=== PATIENT | male | born 1930 | race Caucasian/White ===

== ENCOUNTER 2016-04-03 11:34 | Inpatient (IN) | payer MEDICARE ==
[2016-04-03] VITALS (11 sets, daily range): BP systolic 110–128; BP diastolic 48–69
[~2016-04-03] VITALS: Ht 176.5 cm; Wt 64.0 kg
--- NOTE | 2016-04-03 12:16 | PHYS DOC ---
Past Medical History Past Medical History: A-Fib, GERD, High Cholesterol, Hypertension Past Surgical History: Knee Replacement, Other Alcohol Use: Occasionally Drug Use: None Adult General Chief Complaint Chief Complaint: ALTERED MENTAL STATUS HPI HPI Patient is a 86 year old male who presents with fever 100.4. He also has been complaining about back pain and weakness. He presents to ER in [facility] with RVR. He denies any cough, dysuria, or confusion at this time. Review of Systems Review of Systems Constitutional: Denies fever or chills [] Eyes: Denies change in visual acuity, redness, or eye pain [] HENT: Denies nasal congestion or sore throat [] Respiratory: Denies cough or shortness of breath [] Cardiovascular: No additional information not addressed in HPI [] GI: Denies abdominal pain, nausea, vomiting, bloody stools or diarrhea [] : Denies dysuria or hematuria [] Musculoskeletal: Denies back pain or joint pain [] Integument: Denies rash or skin lesions [] Neurologic: Denies headache, focal weakness or sensory changes [] Endocrine: Denies polyuria or polydipsia [] Current Medications Current Medications Current Medications Medications (Trade) Dose Ordered Sig/Harlan Start Time Stop Time Status Last Admin Dose Admin Acetaminophen (Tylenol) 1,000 mg 1X ONCE 04/03/16 14:45 04/03/16 14:46 DC Diltiazem HCl 10 mg 10 mg 1X ONCE 04/03/16 12:45 04/03/16 12:46 DC 04/03/16 12:45 10 MG Diltiazem HCl/ Dextrose (Cardizem) 125 ml @ 0 mls/hr 1X ONCE 04/03/16 12:45 04/03/16 12:46 DC 04/03/16 12:57 5 MLS/HR Allergies Allergies Allergies Coded Allergies Type Severity Reaction Last Updated Verified ezetimibe Allergy Severe Hives 04/03/16 Yes Physical Exam Physical Exam Constitutional: Well developed, well nourished, no acute distress, non-toxic appearance. [] HENT: Normocephalic, atraumatic, bilateral external ears normal, oropharynx moist, no oral exudates, nose normal. [] Eyes: PERRLA, EOMI, conjunctiva normal, no discharge. [] Neck: Normal range of motion, no tenderness, supple, no stridor. [] Cardiovascular:Heart rate regular rhythm, no murmur [] Lungs & Thorax: Bilateral breath sounds clear to auscultation [] Abdomen: Bowel sounds normal, soft, no tenderness, no masses, no pulsatile masses. [] Skin: Warm, dry, no erythema, no rash. [] Back: No tenderness, no CVA tenderness. [] Extremities: No tenderness, no cyanosis, no clubbing, ROM intact, no edema. [] Neurologic: Alert and oriented X 3, normal motor function, normal sensory function, no focal deficits noted. [] Psychologic: Affect normal, judgement normal, mood normal. [] Current Patient Data Vital Signs Vital Signs Date Time Temp Pulse Resp B/P Pulse Ox O2 Delivery O2 Flow Rate FiO2 04/03/16 14:00 108 24 119/75 94 Room Air 04/03/16 11:50 100.4 3 100.4 Lab Values Laboratory Tests Test 04/03/16 12:05 04/03/16 12:10 04/03/16 13:25 04/03/16 13:40 Prothrombin Time 15.2SEC (11.7-14.0) H Prothrombin Time INR 1.3 (0.8-1.1) H Sodium Level 134mmol/L (136-145) L Potassium Level 4.3mmol/L (3.5-5.1) Chloride Level 97mmol/L (98-107) L Carbon Dioxide Level 24mmol/L (21-32) Anion Gap 13 (6-14) Blood Urea Nitrogen 31mg/dL (8-26) H Creatinine 1.1mg/dL (0.7-1.3) Estimated GFR (Cockcroft-Gault) 63.6 Glucose Level 119mg/dL (70-99) H Lactic Acid Level 2.2mmol/L (0.4-2.0) H Calcium Level 8.8mg/dL (8.5-10.1) Magnesium Level 2.3mg/dL (1.8-2.4) Total Bilirubin 1.5mg/dL (0.2-1.0) H Direct Bilirubin 0.6mg/dL (0.0-0.2) H Aspartate Amino Transferase (AST) 130U/L (15-37) H Alanine Aminotransferase (ALT) 57U/L (16-63) Alkaline Phosphatase 99U/L (46-116) Creatine Kinase 50U/L (39-308) Creatine Kinase MB (Mass) 1.0ng/mL (0.0-3.6) Creatine Kinase MB Relative Index % (0-4) Troponin I Quantitative 0.174ng/mL (0.000-0.055) WX-Cgc-P-Type Natriuretic Peptide > 23247qq/mL (0-449) H Total Protein 7.6g/dL (6.4-8.2) Albumin 3.2g/dL (3.4-5.0) L Thyroid Stimulating Hormone (TSH) 0.498uIU/mL (0.358-3.74) Urine Collection Type Void Urine Color Yellow Urine Clarity Clear Urine pH 5.5 Urine Specific [place] 1.025 Urine Protein 20mg/dL (NEG-TRACE) Urine Glucose (UA) Negativemg/dL (NEG) Urine Ketones (Stick) Negativemg/dL (NEG) Urine Blood Trace (NEG) Urine Nitrite Negative (NEG) Urine Bilirubin Negative (NEG) Urine Urobilinogen Dipstick 1.0mg/dL (0.2 mg/dL) Urine Leukocyte Esterase Negative (NEG) Urine RBC 1-2/HPF (0-2) Urine WBC 1-4/HPF (0-4) Urine Squamous Epithelial Cells Many/LPF Urine Bacteria Few/HPF (0-FEW) Urine Mucus Marked/LPF White Blood Count 5.3x10^3/uL (4.0-11.0) Red Blood Count 3.76x10^6/uL (4.30-5.70) L Hemoglobin 9.8g/dL (13.0-17.5) L Hematocrit 31.3% (39.0-53.0) L Mean Corpuscular Volume 83fL (79-100) Mean Corpuscular Hemoglobin 26pg (25-35) Mean Corpuscular Hemoglobin Concent 31g/dL (31-37) Red Cell Distribution Width 18.8% (11.5-14.5) H Platelet Count 108x10^3/uL (140-400) L Neutrophils (%) (Auto) 73% (31-73) Lymphocytes (%) (Auto) 10% (24-48) L Monocytes (%) (Auto) 17% (0-9) H Eosinophils (%) (Auto) 0% (0-3) Basophils (%) (Auto) 1% (0-3) Neutrophils # (Auto) 3.8x10^3uL (1.8-7.7) Lymphocytes # (Auto) 0.5x10^3/uL (1.0-4.8) L Monocytes # (Auto) 0.9x10^3/uL (0.0-1.1) Eosinophils # (Auto) 0.0x10^3/uL (0.0-0.7) Basophils # (Auto) 0.0x10^3/uL (0.0-0.2) Platelet Estimate Pending Influenza Type A Antigen Negative (NEGATIVE) Influenza Type B Antigen Negative (NEGATIVE) Laboratory Tests 04/03/16 13:25 Laboratory Tests 04/03/16 12:05 EKG EKG KG shows irregular rhythm with a rate of [address] elevations or T- wave inversions, left axis deviation, QRS 88 ms, as interpreted by me. Radiology/Procedures Radiology/Procedures [facility] [address] [place] [address] IMAGING REPORT Signed PATIENT: CODY GARVIN ACCOUNT: [id number] : 1930 LOCATION: ER AGE: 86 SEX: M EXAM STATUS: PRE ER ORD. PHYSICIAN: MAYELA HAGAN MD REASON: chest pain PROCEDURE: PORTABLE CHEST 1V Indication chest pain. A single view of the chest was obtained. Comparison is made to a study 10/02/2011. Heart size is slightly enlarged. There are changes suggesting mild pulmonary vascular congestion. There are probable tiny pleural effusions. A consolidated pneumonia is not seen. Postoperative changes are noted. Degenerative changes about the right shoulder are noted. IMPRESSION: Mild cardiomegaly. Suspect superimposed mild pulmonary vascular congestion. Small bilateral pleural effusions DICTATED and SIGNED BY: ELIANA ORDOÑEZ MD DATE: 04/03/16 1249 CC: MAYELA HAGAN MD; LIVAN LAM MD ~ Impressions: fever Afib with RVR elevated troponin Course & Med Decision Making Course & Med Decision Making Pertinent Labs and Imaging studies reviewed. (See chart for details) Patient presents with a fever and A. fib with RVR. I do not find a source of fever is his chest x-ray and urine do not have any signs of infection. 1 g of Tylenol was ordered and he was started on diltiazem 10 mg IV push and 5 per hour. He is being admitted to Dr. Lam with cardiology consultation. Dragon Disclaimer Dragon Disclaimer This electronic medical record was generated, in whole or in part, using a voice recognition dictation system. Departure Departure Referrals: LIVAN LAM MD (PCP) MAYELA HAGAN MD Apr 03, 2016 12:16
[2016-04-03 12:32] LABS: INR 1.3 (0.8-1.1); PROTHROMBIN TIME PATIENT 15.2 SEC (11.7-14.0)
[2016-04-03 12:39] LABS: BILIRUBIN,URINE NEGATIVE (NEG); GLUCOSE,URINE NEGATIVE (NEG); NITRITE,URINE NEGATIVE (NEG); PH,URINE 5.5
[2016-04-03 12:41] LABS: CALCIUM 8.8 mg/dL (8.5-10.1); CREATININE 1.1 mg/dL (0.7-1.3); GFR 63.6; POTASSIUM 4.3 mmol/L (3.5-5.1)
[2016-04-03] MEDS ORDERED: DILTIAZEM IV PUSH 25 MG/5 ML VIAL. IVP ONE (12:45)
[2016-04-03] MEDS ORDERED: DILTIAZEM 125 MG in IV DEXTROSE 5% 100 ML IV ONE (12:45)
[2016-04-03 12:46] LABS: ALBUMIN 3.2 g/dL (3.4-5.0); DIRECT BILIRUBIN 0.6 mg/dL (0.0-0.2); MAGNESIUM 2.3 mg/dL (1.8-2.4); TOTAL BILIRUBIN 1.5 mg/dL (0.2-1.0); TOTAL PROTEIN 7.6 g/dL (6.4-8.2)
[2016-04-03 12:47] LABS: PROTEIN,URINE 20 mg/dL (NEG-TRACE)
[2016-04-03 12:48] LABS: BACTERIA,URINE FEW /HPF (0-FEW); SQUAMOUS EPITHELIAL CELL,UR MANY /LPF
[2016-04-03 12:54] LABS: CREATINE KINASE 50 U/L (39-308)
--- NOTE | 2016-04-03 12:55 | RAD ---
Indication chest pain. A single view of the chest was obtained. Comparison is made to a study 10/02/2011. Heart size is slightly enlarged. There are changes suggesting mild pulmonary vascular congestion. There are probable tiny pleural effusions. A consolidated pneumonia is not seen. Postoperative changes are noted. Degenerative changes about the right shoulder are noted. IMPRESSION: Mild cardiomegaly. Suspect superimposed mild pulmonary vascular congestion. Small bilateral pleural effusions
[2016-04-03 13:58] LABS: BASO % 1 % (0-3); EOS % 0 % (0-3); HEMATOCRIT 31.3 % (39.0-53.0); HEMOGLOBIN 9.8 g/dL (13.0-17.5); LYMPH # 0.5 x10^3/uL (1.0-4.8); LYMPH % 10 % (24-48); MEAN CORPUSCULAR HEMOGLOBIN 26 pg (25-35); MEAN CORPUSCULAR HGB CONC 31 g/dL (31-37); MEAN CORPUSCULAR VOLUME 83 fL (79-100); MONO % 17 % (0-9); NEUT % 73 % (31-73); PLATELET COUNT 108 x10^3/uL (140-400); RED BLOOD COUNT 3.76 x10^6/uL (4.30-5.70); RED CELL DISTRIBUTION WIDTH 18.8 % (11.5-14.5); WHITE BLOOD COUNT 5.3 x10^3/uL (4.0-11.0)
[2016-04-03 14:24] LABS: OBC FLU VALID
[2016-04-03] MEDS ORDERED: ACETAMINOPHEN 500 MG TABLET PO ONE (14:45)
--- NOTE | 2016-04-03 15:34 | EKG ---
[facility] [address] [place] [address] Test Date: 2016-04-03 Test Time: 11:59:01 Pat Name: CODY GARVIN Department: Room: Gender: M [employer]: : 1930 Requested By: MAYELA HAGAN Order Number: [id number] Reading MD: Ann Haines Measurements Intervals [place] Rate: 128 P: [place]: QRS: -11 QRSD: 88 T: 66 QT: 306 QTc: 450 Interpretive Statements ATRIAL FIBRILLATION VENTRICULAR PREMATURE COMPLEX(ES) LEFTWARD AXIS QRS(T) CONTOUR ABNORMALITY CONSISTENT WITH INFERIOR INFARCT PROBABLY OLD ABNORMAL ECG RI6.01 Compared to ECG 06/05/2015 15:17:35 Sinus rhythm no longer present Myocardial infarct finding still present Electronically Signed On 04-05-2016 20:14:26 [employer] by Ann Haines
[2016-04-03 15:40] LABS: NUCLEATED RBC 1; PLT ESTIMATE DECREASED (ADEQUATE)
[2016-04-03 15:41] LABS: ANISOCYTOSIS SLIGHT; OVALOCYTES MANY; POIKILOCYTOSIS MARKED; POLYCHROMASIA PRESENT
[2016-04-03] MEDS ORDERED: FUROSEMIDE 20 MG/2 ML VIAL IVP ONE (15:45)
--- NOTE | 2016-04-03 15:57 | PDOC2 ---
CARDIAC CONSULT DATE OF CONSULT Date of Consult DATE: 04/03/16 TIME: 15:12 REASON FOR CONSULT Reason for Consult: AFIB RVR REFERRING PHYSICIAN Referring Physician: Chris SOURCE Source: Caregiver (daughter), Chart review, Patient HISTORY OF PRESENT ILLNESS HISTORY OF PRESENT ILLNESS This is a pleasant 86 yo male admitted for multiple complains. Reports that in the last week he has been feeling weak, complains of anorexia and fatigue. Also has been coughing lately especially when he swallows and noted at home and at the ED room upon swallowing thin liquids. Denies any CP but positive for SOA , PND. No significant peripheral edema. Denies any palpitations or chest pain. Since his appetite has been decreased, his daughter has been pushing fluids and in the last 24 hours he has drank about 1500 ml of fluids. He also has been having episodes of cold sweats and possible chills but no recorded fever. Also complains of right groin pain but this is intermittent but this is not duplicated with palpation and ROM although he mentions this hurting when he walks. He did have x1 diarrhea last night. He has been complaint with his medications. PAST MEDICAL HISTORY Cardiovascular: CAD, CHF (ICM), HTN, Hyperlipidemia, Aortic stenosis (moderate) , Other (AAA) Pulmonary: No pertinent hx CENTRAL NERVOUS SYSTEM: Other (SAH from fall) GI: GERD Heme/Onc: Anemia NOS Hepatobiliary: No pertinent hx Psych: Anxiety Musculoskeletal: Osteoarthritis, Other (cervical stenosis) Rheumatologic: No pertinent hx Infectious disease: No pertinent hx ENT: No pertinent hx Renal/: UTI, Benign prostatic enlarg. Endocrine: Hypothyroidism Dermatology: No pertinent hx PAST SURGICAL HISTORY Past Surgical History: CABG, Total knee replacement (right), Tonsillectomy, Other (AAA repair 08/2011; prostatectomy) FAMILY HISTORY Family History: Coronary Artery Disease SOCIAL HISTORY Smoke: No (remotely quit) ALCOHOL: occassional Drugs: None Lives: with Family CURRENT MEDICATIONS CURRENT MEDICATIONS Current Medications Medications (Trade) Dose Ordered Sig/Harlan Route PRN Reason Start Time Stop Time Status Last Admin Dose Admin Diltiazem HCl 10 mg 10 mg 1X ONCE IVP 04/03/16 12:45 04/03/16 12:46 DC 04/03/16 12:45 Diltiazem HCl/ Dextrose (Cardizem) 125 ml @ 0 mls/hr 1X ONCE IV 04/03/16 12:45 04/03/16 12:46 DC 04/03/16 12:57 ALLERGIES ALLERGIES: Coded Allergies: ezetimibe (Verified Allergy, Severe, Hives, 04/03/16) ROS Review of System 14 point ROS evaluated with pertinent positives noted per HPI PHYSICAL EXAM General: Alert, Oriented X3, Cooperative, No acute distress HEENT: Atraumatic, Mucous membr. moist/pink Lungs: Other (bibasilar crackles) Heart: Normal S1, Normal S2, Other (AFIB; 5/6 systolic murmur to RACHELL border; 3/ 6 to LLS border) Abdomen: Soft, No tenderness Extremities: No cyanosis, Other (trace LE edema) Skin: No breakdown, No significant lesion Neuro: Normal speech, Sensation intact Psych/Mental Status: Mental status NL, Mood NL MUSCULOSKELETAL: Osteoarthritic changes both hands, Other (no right groin tenderness; neurovascular status to bilateral LE intact) VITALS VITALS Vital Signs Date Time Temp Pulse Resp B/P Pulse Ox O2 Delivery O2 Flow Rate FiO2 04/03/16 14:00 108 24 119/75 94 Room Air 04/03/16 11:50 100.4 3 100.4 LABS Lab: Laboratory Tests Test 04/03/16 12:05 04/03/16 12:10 04/03/16 13:25 04/03/16 13:40 Prothrombin Time 15.2SEC (11.7-14.0) Prothromb Time International Ratio 1.3 (0.8-1.1) Sodium Level 134mmol/L (136-145) Potassium Level 4.3mmol/L (3.5-5.1) Chloride Level 97mmol/L (98-107) Carbon Dioxide Level 24mmol/L (21-32) Anion Gap 13 (6-14) Blood Urea Nitrogen 31mg/dL (8-26) Creatinine 1.1mg/dL (0.7-1.3) Estimated GFR (Cockcroft-Gault) 63.6 Glucose Level 119mg/dL (70-99) Lactic Acid Level 2.2mmol/L (0.4-2.0) Calcium Level 8.8mg/dL (8.5-10.1) Magnesium Level 2.3mg/dL (1.8-2.4) Total Bilirubin 1.5mg/dL (0.2-1.0) Direct Bilirubin 0.6mg/dL (0.0-0.2) Aspartate Amino Transf (AST/SGOT) 130U/L (15-37) Alanine Aminotransferase (ALT/SGPT) 57U/L (16-63) Alkaline Phosphatase 99U/L (46-116) Creatine Kinase 50U/L (39-308) Creatine Kinase MB (Mass) 1.0ng/mL (0.0-3.6) Creatine Kinase MB Relative Index % (0-4) Troponin I Quantitative 0.174ng/mL (0.000-0.055) ZH-Uwi-Y-Type Natriuretic Peptide > 25555qy/mL (0-449) Total Protein 7.6g/dL (6.4-8.2) Albumin 3.2g/dL (3.4-5.0) Thyroid Stimulating Hormone (TSH) 0.498uIU/mL (0.358-3.74) Urine Collection Type Void Urine Color Yellow Urine Clarity Clear Urine pH 5.5 Urine Specific [place] 1.025 Urine Protein 20mg/dL (NEG-TRACE) Urine Glucose (UA) Negativemg/dL (NEG) Urine Ketones (Stick) Negativemg/dL (NEG) Urine Blood Trace (NEG) Urine Nitrite Negative (NEG) Urine Bilirubin Negative (NEG) Urine Urobilinogen Dipstick 1.0mg/dL (0.2 mg/dL) Urine Leukocyte Esterase Negative (NEG) Urine RBC 1-2/HPF (0-2) Urine WBC 1-4/HPF (0-4) Urine Squamous Epithelial Cells Many/LPF Urine Bacteria Few/HPF (0-FEW) Urine Mucus Marked/LPF White Blood Count 5.3x10^3/uL (4.0-11.0) Red Blood Count 3.76x10^6/uL (4.30-5.70) Hemoglobin 9.8g/dL (13.0-17.5) Hematocrit 31.3% (39.0-53.0) Mean Corpuscular Volume 83fL (79-100) Mean Corpuscular Hemoglobin 26pg (25-35) Mean Corpuscular Hemoglobin Concent 31g/dL (31-37) Red Cell Distribution Width 18.8% (11.5-14.5) Platelet Count 108x10^3/uL (140-400) Neutrophils (%) (Auto) 73% (31-73) Lymphocytes (%) (Auto) 10% (24-48) Monocytes (%) (Auto) 17% (0-9) Eosinophils (%) (Auto) 0% (0-3) Basophils (%) (Auto) 1% (0-3) Neutrophils # (Auto) 3.8x10^3uL (1.8-7.7) Lymphocytes # (Auto) 0.5x10^3/uL (1.0-4.8) Monocytes # (Auto) 0.9x10^3/uL (0.0-1.1) Eosinophils # (Auto) 0.0x10^3/uL (0.0-0.7) Basophils # (Auto) 0.0x10^3/uL (0.0-0.2) Influenza Type A Antigen Negative (NEGATIVE) Influenza Type B Antigen Negative (NEGATIVE) ECHOCARDIOGRAM ECHOCARDIOGRAM <Conclusion> Inferior basal wall hypokinesis. The Ejection Fraction is 45-50%. The left atrium is mildly dilated. Moderate aortic stenosis with mean pressure gradient of 23 mmHg. Moderate mitral regurgitation. Moderate tricuspid regurgitation. The PA pressure was estimated at 56 mmHg. There is no evidence of significant pericardial effusion. DATE: 03/04/16 1617 STRESS TEST STRESS TEST Conclusion 1. Regadenoson cardioisotope stress test showed moderate infarct involving the base to mid inferior wall without any ischemia. 2. Also seen was a small infarct involving the apical wall without any ischemia. 3. Inferior wall hypokinesis with ejection fraction calculated at 49%. 4. Low to intermediate risk for cardiac events. DATE: 12/10/14 1423 ASSESSMENT/PLAN ASSESSMENT/PLAN 1. Dysphagia with likely aspiration: Verbalized some swallowing difficulty and noted with witnessed and consistent cough after drinking thin liquids. Recommend NPO until evaluated by Speech. Recommend GI consult. Defer to PCP. 2. Fever: T 100.4, viral syndrome? aspiration related? Neg flu serology 3. AFIB RVR: per chart review, this is new onset. Likely multifactorial in etiology likely stemming from above condition but clearly susceptible given his age and valvular disease. Received cardizem bolus and drip has been initiated. 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 If no spontaneous conversion then will need to consult neurology and see if short term anticoagulation is possible for any possible cardioversion. Will utilize ASA for now clear for po meds. MCOT when discharge and note afib burden. 4. Acute on chronic systolic CHF: Likely induced by above. Known ICM with last EF of 45-50% 02/2016. x1 low dose IV 20 mg lasix. 5. CAD: CABG in the past. CP free. Last MPI 11/2014 with no ischemia. EKG AFIB RVR. Troponin initial at 0.174, demand mediated related to above concurrent acute conditions. Continue with secondary prevention as tolerated. 6. 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 Stable. 7. Prerenal azotemia: dehydration complicated by CHF. Noted with possible aspiration with thin liquids. Speech eval. NPO for now. Start on low rate NS. 8. Right groin pain with known PAD: mainly with ambulation. arthritis? claudication? Defer to PCP 9. AAA/PAD: s/p aortobifemoral bypass and complex surgical AAA repair. 10. Intermittent abdominal pain with mild transaminitis: CT of abd/pelvis also in relation to AAA/PAD was ordered as outpt but does not appear that it has been done yet. Will defer to PCP. 11. HTN: controlled, will hold ACEi for now till adequately hydrated and per BP response to cardizem. 12. HLP: statin, lipid panel 13. Hypothyroidism: on replacement. TSH level. 14. Hx of chronic right SDH: noted on CT 05/2015. Failed to f/u with neurology. Defer to PCP 15. Likely Dementia: notable for cerebral atrophy Problems: MARIJA LIMA APRN Apr 03, 2016 15:57
[2016-04-03] MEDS ORDERED: IV NORMAL SALINE 1000ML BAG 1,000 ML IV SCH (16:15)
[2016-04-03 16:28] LABS: CHOLESTEROL/HDL RATIO 2.4
[2016-04-03] MEDS ORDERED: ACETAMINOPHEN 650 MG SUPP.RECT. PR ONE (16:30)
[2016-04-03] MEDS ORDERED: ASPIRIN 300 MG SUPP.RECT PR ONE (17:15)
[2016-04-03] MEDS ORDERED: DIGOXIN 500 MCG/2 ML AMPUL. IV ONE (17:15)
[2016-04-03] MEDS ORDERED: ASPI-482 PO (18:26)
[2016-04-03] MEDS ORDERED: PARO20TA55 PO (18:26)
[2016-04-03] MEDS ORDERED: OMEP20TA63 PO (18:26)
[2016-04-03] MEDS ORDERED: LEVO50TA5 PO (18:29)
[2016-04-03] MEDS ORDERED: LISI-338 PO (18:29)
[2016-04-03] MEDS ORDERED: ACET325T21 PO (18:29)
[2016-04-03] MEDS ORDERED: MULT-208 PO (18:29)
[2016-04-03] MEDS ORDERED: ACET500T68 PO (18:30)
[2016-04-03] MEDS ORDERED: ATORVASTATIN CA80 MG PO (18:30)
[2016-04-03] MEDS ORDERED: HYDR-2762 PO (18:32)
[2016-04-04] VITALS (10 sets, daily range): BP systolic 101–127; BP diastolic 49–64
[2016-04-04 02:14] LABS: BASO # 0.1 x10^3/uL (0.0-0.2); BASO % 1 % (0-3); EOS % 0 % (0-3); HEMATOCRIT 27.4 % (39.0-53.0); HEMOGLOBIN 8.9 g/dL (13.0-17.5); LYMPH % 12 % (24-48); MEAN CORPUSCULAR HEMOGLOBIN 26 pg (25-35); MEAN CORPUSCULAR HGB CONC 32 g/dL (31-37); MEAN CORPUSCULAR VOLUME 82 fL (79-100); MONO % 13 % (0-9); NEUT % 75 % (31-73); PLATELET COUNT 86 x10^3/uL (140-400); RED BLOOD COUNT 3.36 x10^6/uL (4.30-5.70); RED CELL DISTRIBUTION WIDTH 18.5 % (11.5-14.5)
[2016-04-04 02:22] LABS: CALCIUM 7.8 mg/dL (8.5-10.1); POTASSIUM 3.2 mmol/L (3.5-5.1)
[2016-04-04] MEDS ORDERED: FLU VACC QUAD 2016-17 (36MOS+)/PF 0.5 ML SYRINGE. VAX IM ONE (09:00)
[2016-04-04] MEDS ORDERED: INFLUENZA VAX SCREEN BY RX. MC ONE (09:00)
--- NOTE | 2016-04-04 11:18 | PDOC ---
Provider Note Provider Note See admission H&P dictation #[id number] Impression: 1. A. fib with RVR: 2. Abdominal pain: 3. Congestive heart failure likely secondary to the atrial fibrillation/RVR and the combination of systolic and diastolic dysfunction: 4. Anemia: 5. Prerenal azotemia secondary to volume depletion and poor by mouth intake: 6. Elevated troponins secondary to demand ischemia from A. fib: 7. Dysphagia symptoms with difficulty swallowing and cough: 8. Abnormal glucose: 9. Hypertension: 10. Valvular disease including moderate , mod MR, mod TR: 11. History of depression: 12. Hypokalemia: LIVAN LAM MD Apr 04, 2016 11:18
[2016-04-04] MEDS ORDERED: FENTANYL PF 100 MCG/2 ML VIAL. IV PRN (11:45)
[2016-04-04] MEDS ORDERED: IOHEXOL 300 MG/ML 75 ML VIAL IV ONE (11:45)
[2016-04-04] MEDS ORDERED: CONTRAST GIVEN MC PRN (12:00)
[2016-04-04] MEDS: POTASSIUM CHLORIDE 10MEQ 100 ML IV SCH ×4 (12:22→15:27)
--- NOTE | 2016-04-04 12:24 | HP ---
ADMIT DATE: 04/04/2016 ATTENDING PHYSICIAN: Livan Lam MD CHIEF COMPLAINT: Altered mental status. HISTORY OF PRESENT ILLNESS: The patient was having some mild confusion on the day of his admission. He also had a temperature to 100.4. He has been sick over the last couple of weeks. He has not been eating and drinking much. He has been feeling generally weak and fatigued. Due to the combination of symptoms, he presented to the Emergency Room for further evaluation where it was noted that he was in atrial fibrillation with rapid ventricular response. PAST MEDICAL HISTORY: Significant for coronary artery disease, ischemic cardiomyopathy, peripheral vascular disease, abdominal aortic aneurysm status post repair, hypertension, hyperlipidemia, depression, aortic stenosis and other valvular disease, hypothyroidism, beginnings of dementia, anemia, abnormal glucose, moderate mitral regurg, moderate tricuspid regurg, pulmonary hypertension, and subarachnoid hemorrhage secondary to fall last year. PAST SURGICAL HISTORY: Prostatectomy, right knee replacement, coronary artery bypass grafting, abdominal aortic aneurysm repair in 2011, tonsillectomy. SOCIAL HISTORY: The patient lives at home with his . He has a granddaughter who takes care of him regularly. He does not smoke, he quit in the remote past. He occasionally drinks alcohol, no illicit drug use. FAMILY HISTORY: Noncontributory. ALLERGIES TO MEDICATIONS: ZETIA. MEDICATIONS: At time of admission include Tylenol 650 mg p.o. q. 6 hours p.r.n., aspirin 81 mg p.o. daily, Lipitor 80 mg p.o. daily, [place] 7.5/325 1 p.o. 4 hours p.r.n., levothyroxine 50 mcg p.o. daily, lisinopril 5 mg p.o. daily, multivitamin 1 p.o. daily, omeprazole 20 mg p.o. daily, Paxil 20 mg p.o. daily. REVIEW OF SYSTEMS: The patient had a low grade temperature on the day prior to admission. He has had some difficulty swallowing over the last several days and has been coughing more when he has been eating. He did have difficulty swallowing a pill where it feels like it is caught. He has had a decreased appetite and decreased oral intake over the last week or two. He denies any significant shortness of breath. He has had a cough with eating primarily. He denies any chest pain or palpitations. He has not had any lower extremity swelling. He has had intermittent constipation and diarrhea. There has been no emesis. He is having some abdominal pain and swelling occasionally in the lower quadrants and pain intermittently in the upper abdomen. He has been voiding frequently. He denies any dysuria or hematuria. He denies any focal paresthesias or weakness, but he has been generally weak and lying in bed more lately. His depression has been relatively stable. He does have things that he looks forward to. PHYSICAL EXAMINATION: VITAL SIGNS: At time of admission, temperature 100.4 orally, pulse 125, respiratory rate 26, blood pressure 117/79, O2 sat 96% on room air. GENERAL: The patient is alert and oriented x 3, he is lying in bed in no acute distress. HEENT: The pupils are equal and round. The extraocular motions are intact. Sclerae are anicteric. The oropharynx is minimally moist. NECK: Without JVD. There is no bruit. CHEST: Has decreased air movement and has occasional crackles at the left base and decreased breath sounds at the right base. CARDIOVASCULAR: The heart has an irregular rhythm with 2/6 systolic murmur. Telemetry shows atrial fibrillation, currently with a controlled rate. ABDOMEN: Has occasional bowel sounds. It is soft and nondistended. There is some tenderness in the right upper abdomen. There is no guarding or rebound. EXTREMITIES: Trace of edema bilaterally in the lower legs. NEUROLOGIC: Motor strength is 5/5 bilaterally throughout. PSYCHIATRIC: Mood and affect appear appropriate. LABORATORY DATA: At the time of admission, sodium 134, potassium 4.3 which decreased to 3.2, chloride 97, CO2 24, BUN 31, creatinine 1.1, glucose 119, magnesium 2.3, total bili 1.5, direct bili 0.6, AST 130. Troponin 0.174. BNP greater than 35,000. Albumin 3.2, TSH 0.498, and INR 1.3. Urine shows specific gravity 1.025, 20 protein, trace blood, negative nitrite and leukocyte esterase. Influenza A and B was negative. WBC 5.3, hemoglobin 9.8, hematocrit 31.3, platelets 108 with a differential of 49, 26 bands, 9 lymphocytes, 1 atypical lymphocyte, 1 nucleated RBC, many ovalocytes. Chest x-ray shows mild cardiomegaly, suspect superimposed mild pulmonary vascular congestion with small bilateral pleural effusions. EKG shows an irregular rhythm with a rate of [address] elevations or T-wave inversions on preliminary read. IMPRESSION: 1. Atrial fibrillation with rapid ventricular response. 2. Abdominal pain. 3. Congestive heart failure likely secondary to the atrial fibrillation with rapid ventricular response and combination of diastolic and systolic dysfunction. 4. Anemia. 5. Prerenal azotemia secondary to volume depletion and poor oral intake. 6. Elevated troponins secondary to demand ischemia from atrial fibrillation. 7. Dysphagia symptoms with difficulty swallowing and cough. 8. Abnormal glucose. 9. Hypertension. 10. Valvular disease including moderate aortic stenosis, moderate mitral regurgitation, moderate tricuspid regurgitation, and pulmonary hypertension. 11. History of depression. 12. Hypokalemia. PLAN: The patient is admitted. Cardiology is consulted. No further evaluation cardiac zapata at this point other than gentle diuresis. He did have an echocardiogram done approximately 3-4 weeks ago. We will make adjustments per their recommendations as needed. We will get a CT scan of the abdomen and pelvis, which we are going to do as an outpatient due to his weight loss and abdominal discomfort as well as his anemia. He may need GI evaluation. We will have speech therapy see the patient to determine whether he can have things by mouth or has to have a modified diet. We will give him gentle IV fluids until we can make sure about his oral intake. We will check a hemoglobin A1c secondary to his abnormal glucose. We will replace his potassium either through the IV or orally. Further treatment will be based on how the patient responds to these interventions. LIVAN LAM MD DR: CHARLIE/indira JOB#: [id number] / [id number] ANTONINO
[2016-04-04] MEDS: DILTIAZEM 125 MG in IV DEXTROSE 5% 100 ML IV PRN (12:31)
--- NOTE | 2016-04-04 13:01 | RAD ---
CT of the abdomen and pelvis with contrast, 04/04/2016: History: Abdominal pain, weight loss Multidetector CT imaging was performed following an IV bolus injection of iodinated contrast material. No oral contrast material was administered for this exam as requested. Comparison is made to a study from 08/21/2011. Small bilateral pleural effusions have developed. There is mild atelectasis in both lung bases. Coronary artery calcifications are present. No hepatic mass or bile duct dilatation is seen. The gallbladder is unremarkable. The pancreas is somewhat atrophic. The spleen is of normal size. The right kidney shows no evidence of obstruction or mass. A normal kidney is not visible on the left renal fossa. 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 This pelvic kidney has decreased markedly in size and demonstrates poor enhancement. There has been interval repair of a distal abdominal aortic aneurysm. There is an aorto-bifemoral graft in place. The graft is patent. A right common iliac artery aneurysm on the previous study has increased in size. There is also a smaller left common iliac artery aneurysm. These appear to opacify in a retrograde manner related to the presence of the aortofemoral grafts. The right common iliac artery aneurysm measures 6 x 4.3 cm on the axial images compared to measurements of 4 x 3.5 cm on the previous study. Its right lateral margin cannot be clearly from the adjacent psoas muscle. It involves the origins of the right internal iliac and external iliac arteries. The left common iliac artery aneurysm measures approximately 3.3 cm in width, compared to a measurement of approximately 2.3 cm on the previous study. The prostate gland is surgically absent. No abdominal or pelvic adenopathy is seen. There are scattered colonic diverticula. No paracolonic inflammatory process is seen. There is no evidence of bowel obstruction. Minimal increased density in the paracolic gutter regions may be due to scarring versus a trace amount of free fluid. No large volume of free fluid is evident. No free air is present in the abdomen. There is a small umbilical hernia containing only fat. There are additional smaller fascial defects at the midline just superior to this level, which also contain only fat. IMPRESSION: 1. Interval repair of a distal abdominal aortic aneurysm with an aortobifemoral graft in place. 2. Large right common iliac artery aneurysm which has increased in size since 08/21/2011. 3. Small left common iliac artery aneurysm. 4. 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 5. Mild colonic diverticulosis. 6. Small umbilical and periumbilical hernias containing only fat. 7. Small bilateral pleural effusions have developed with mild bibasilar atelectasis.
[2016-04-05] MEDS: DILTIAZEM 125 MG in IV DEXTROSE 5% 100 ML IV PRN (01:25)
[2016-04-05 02:45] VITALS: BP 108/58
[2016-04-05 06:03] LABS: BASO % 1 % (0-3); EOS % 0 % (0-3); HEMATOCRIT 25.9 % (39.0-53.0); HEMOGLOBIN 8.2 g/dL (13.0-17.5); LYMPH # 1.3 x10^3/uL (1.0-4.8); LYMPH % 19 % (24-48); MEAN CORPUSCULAR HEMOGLOBIN 27 pg (25-35); MEAN CORPUSCULAR HGB CONC 32 g/dL (31-37); MEAN CORPUSCULAR VOLUME 83 fL (79-100); MONO % 19 % (0-9); NEUT % 61 % (31-73); PLATELET COUNT 85 x10^3/uL (140-400); RED BLOOD COUNT 3.11 x10^6/uL (4.30-5.70); RED CELL DISTRIBUTION WIDTH 18.3 % (11.5-14.5); WHITE BLOOD COUNT 6.5 x10^3/uL (4.0-11.0)
[2016-04-05 06:22] LABS: % SAT IRON 9 % (15-34); IRON,SERUM 21 ug/dL (65-175)
[2016-04-05 06:26] LABS: ALBUMIN 2.3 g/dL (3.4-5.0); ALBUMIN/GLOBULIN RATIO 0.6 (1.0-1.7); CALCIUM 7.8 mg/dL (8.5-10.1); CREATININE 0.8 mg/dL (0.7-1.3); GFR 91.9; POTASSIUM 3.8 mmol/L (3.5-5.1); TOTAL PROTEIN 6.2 g/dL (6.4-8.2)
[2016-04-05 07:50] VITALS: BP 116/61
[2016-04-05 08:30] LABS: PLT ESTIMATE DECREASED (ADEQUATE)
[2016-04-05 08:36] LABS: MICROCYTOSIS PRESENT; POIKILOCYTOSIS MARKED
[2016-04-05 08:37] LABS: OVALOCYTES MANY; SCHISTOCYTES MOD; SPHEROCYTES FEW
[2016-04-05] MEDS ORDERED: BARIUM SULFATE 40% 148 GM PWD PO ONE (10:15)
--- NOTE | 2016-04-05 11:12 | RAD ---
Video dysphasia study, 04/05/2016: History: Possible aspiration The swallowing mechanism was examined fluoroscopically in the lateral projection while the patient ingested a variety of food materials mixed with barium. 3.6 minutes of fluoroscopy time was utilized. One video loop was recorded by a member of the speech Department. When ingesting the thin liquid materials there was deep laryngeal penetration down to the level of vocal cords. A small amount of material eventually dribbled into the upper trachea. When the honey thickened material was utilized the laryngeal penetration abated. No further aspiration occurred. The majority of the barium bolus passed normally through the cervical esophagus. With the thicker materials and barium coated solids there was moderate vallecular residue following swallowing. IMPRESSION: 1. Deep laryngeal penetration and minimal janeen aspiration with the thin liquids which abated when the honey thickened material was utilized. 2. Moderate vallecular residue with the thicker materials and barium coated solids.
[2016-04-05] MEDS: AA 3%/ELECTROLYTE-TPN SOLN/GLY 1,000 ML IV SCH ×2 (12:09→23:28)
--- NOTE | 2016-04-05 12:16 | PDOC ---
SUBJECTIVE Subjective No new complaints. Denies any shortness of breath or chest pain. No new abdominal pain. He is weak and feels unsteady on his feet. OBJECTIVE Vital Signs Vital Signs Date Time Temp Pulse Resp B/P Pulse Ox O2 Delivery O2 Flow Rate FiO2 04/05/16 08:00 Room Air 3.0 04/05/16 07:50 97.3 74 18 116/61 97 Room Air 97.3 04/05/16 02:45 97.4 71 16 108/58 96 Room Air 97.4 04/04/16 23:18 97.7 71 16 117/60 96 Room Air 97.7 04/04/16 19:31 Room Air 04/04/16 19:20 98.0 82 16 112/57 94 Room Air 98.0 04/04/16 14:36 98.2 75 18 113/60 96 Room Air 98.2 I & O Intake and Output 04/05/16 07:00 Intake Total 1325 ml Output Total 300 ml Balance 1025 ml Intake Oral 0 ml IV Total 525 ml Other 800 ml Output Urine Total 300 ml # Voids 1 PHYSICAL EXAM Physical Exam General: No acute distress. Laying in bed without supplemental oxygen Mental status: Alert and oriented. Chest: Okay air movement. Occasional crackles at the left base. Mildly decreased air movement at the right base. CV: Irregularly irregular rhythm. Rate controlled on telemetry. 2/6 systolic murmur. Abdomen: Normal bowel sounds. Soft. Not distended. No tenderness. No guarding. No rebound. Extremities: Trace bilateral lower extremity edema ASSESSMENT/PLAN Assessment/Plan 1. A. fib with RVR: We'll transition to oral medication for rate control then discontinue the Cardizem drip. Would prefer to use a medication like Lopressor initially which we can crush since he may have difficulty with swallowing pills as noted on speech eval 2. Abdominal pain: CT scan noted. Diverticulosis. Increased size of right iliac aneurysm with retrograde filling? Status post aortobifemoral bypass. Consult GI. 3. Congestive heart failure likely secondary to the atrial fibrillation/RVR and the combination of systolic and diastolic dysfunction: Continue to monitor and per cardiology. 4. Anemia: Hemoglobin decreased slightly far today. Possibly due to dilutional effect of fluids. We'll consult GI since he has been having some abdominal pain as well. 5. Prerenal azotemia secondary to volume depletion and poor by mouth intake: Continue IV fluids and monitor for worsening evidence of failure. 6. Elevated troponins secondary to demand ischemia from A. fib: Continue per cardiology. 7. Dysphagia symptoms with difficulty swallowing and cough: Speech eval noted. Possibly due to weakness from being ill over the last couple weeks. Hopefully this will improve as his strength improves with better nutrition. 8. Abnormal glucose: Continue to monitor as needed. 9. Hypertension: Stable. Adjust medications as noted. 10. Valvular disease including moderate , mod MR, mod TR: Stable, continue per cardiology. 11. History of depression: Stable. 12. Hypokalemia: Improved post replacement 13. Right common iliac aneurysm increased to 6 x 4 cm size with possible retrograde filling: He is status post aortobifemoral bypass but we will have vascular surgery look at the films and patient to see if we need to do anything else he has noticed some fullness in his right lower pelvis in the last week or 2 intermittently. Problems: COMMENT Lab Laboratory Tests Test 04/05/16 05:28 White Blood Count 6.5x10^3/uL (4.0-11.0) Red Blood Count 3.11x10^6/uL (4.30-5.70) Hemoglobin 8.2g/dL (13.0-17.5) Hematocrit 25.9% (39.0-53.0) Mean Corpuscular Volume 83fL (79-100) Mean Corpuscular Hemoglobin 27pg (25-35) Mean Corpuscular Hemoglobin Concent 32g/dL (31-37) Red Cell Distribution Width 18.3% (11.5-14.5) Platelet Count 85x10^3/uL (140-400) Neutrophils (%) (Auto) 61% (31-73) Lymphocytes (%) (Auto) 19% (24-48) Monocytes (%) (Auto) 19% (0-9) Eosinophils (%) (Auto) 0% (0-3) Basophils (%) (Auto) 1% (0-3) Neutrophils # (Auto) 4.0x10^3uL (1.8-7.7) Lymphocytes # (Auto) 1.3x10^3/uL (1.0-4.8) Monocytes # (Auto) 1.2x10^3/uL (0.0-1.1) Eosinophils # (Auto) 0.0x10^3/uL (0.0-0.7) Basophils # (Auto) 0.0x10^3/uL (0.0-0.2) Segmented Neutrophils % 46% (35-66) Band Neutrophils % 16% (0-9) Lymphocytes % 16% (24-48) Atypical Lymphocytes % (Manual) 9% (0-0) Monocytes % 13% (0-10) Platelet Estimate Decreased (ADEQUATE) Large Platelets Present Poikilocytosis Marked Microcytosis Present Macrocytosis Present Spherocytes Few Ovalocytes Many Schistocytes Mod RBC Morphology Bizarre Forms Many Sodium Level 136mmol/L (136-145) Potassium Level 3.8mmol/L (3.5-5.1) Chloride Level 104mmol/L (98-107) Carbon Dioxide Level 19mmol/L (21-32) Anion Gap 13 (6-14) Blood Urea Nitrogen 23mg/dL (8-26) Creatinine 0.8mg/dL (0.7-1.3) Estimated GFR (Cockcroft-Gault) 91.9 BUN/Creatinine Ratio 29 (6-20) Glucose Level 87mg/dL (70-99) Calcium Level 7.8mg/dL (8.5-10.1) Iron Level 21ug/dL (65-175) Total Iron Binding Capacity 241ug/dL (250-450) Iron Saturation 9% (15-34) Total Bilirubin 1.0mg/dL (0.2-1.0) Aspartate Amino Transf (AST/SGOT) 65U/L (15-37) Alanine Aminotransferase (ALT/SGPT) 34U/L (16-63) Alkaline Phosphatase 91U/L (46-116) Total Protein 6.2g/dL (6.4-8.2) Albumin 2.3g/dL (3.4-5.0) Albumin/Globulin Ratio 0.6 (1.0-1.7) LIVAN LAM MD Apr 05, 2016 12:16
[2016-04-05] MEDS ORDERED: HYDROCODONE/APAP 7.5/325MG TABLET. PO PRN (12:30)
[2016-04-05] MEDS ORDERED: ACETAMINOPHEN 325 MG TABLET. PO PRN (12:30)
[2016-04-05] MEDS: PAROXETINE 20 MG TABLET. PO SCH (12:54)
[2016-04-05] MEDS: PANTOPRAZOLE 40 MG TABLET. PO SCH (12:54)
[2016-04-05] MEDS: DILTIAZEM HCL 30 MG TABLET PO SCH ×2 (13:58→20:56)
[2016-04-05 14:29] VITALS: BP 106/53
[2016-04-05 19:59] VITALS: BP 122/59
--- NOTE | 2016-04-05 20:01 | PDOC2 ---
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 Callahan) that was admitted with low grade fever , weakness, and atrial fibrillation. He has had a loss of appetite over the past several months, and lost around 30 pounds. He does not complain of any abdominal pain. He is able to eat, and denies any vomiting. His bowel movements have been more irregular, although he continues to have BM and was started on miralax. He has not had any recent follow-up or repeat imaging related to his aneurysm repair. Past Medical History Cardiovascular: CAD, CHF (ICM), HTN, Hyperlipidemia, Aortic stenosis (moderate) , Other (AAA) Pulmonary: No pertinent hx CENTRAL NERVOUS SYSTEM: Other (SAH from fall) GI: GERD Heme/Onc: Anemia NOS Hepatobiliary: No pertinent hx Psych: Anxiety Musculoskeletal: Osteoarthritis, Other (cervical stenosis) Rheumatologic: No pertinent hx Infectious disease: No pertinent hx ENT: No pertinent hx Renal/: UTI, Benign prostatic enlarg. Endocrine: Hypothyroidism Dermatology: No pertinent hx Past Surgical History Past Surgical History: CABG, Total knee replacement (right), Tonsillectomy, Other (AAA repair 08/2011; prostatectomy) Family History Family History: Coronary Artery Disease Social History No (remotely quit) ALCOHOL: occassional Drugs: None Lives: with Family Current Problem List Problem List Problems Medical Problems: (1) Atrial fibrillation with RVR Status: Acute Current Medications Current Medications Current Medications Diltiazem HCl 10 mg 10 mg 1X ONCE IVP Last administered on 04/03/16 12:45; Start 04/03/16 at 12:45; Stop 04/03/16 at 12:46; Status DC Diltiazem HCl/ Dextrose (Cardizem) 125 ml @ 0 mls/hr 1X ONCE IV Last administered on 04/03/16 12:57; Start 04/03/16 at 12:45; Stop 04/03/16 at 12:46 ; Status DC Acetaminophen (Tylenol) 1,000 mg 1X ONCE PO ; Start 04/03/16 at 14:45; Stop at 14:46; Status DC Furosemide 20 mg 20 mg 1X ONCE IVP Last administered on 04/03/16 16:32; Start 04/03/16 at 15:45; Stop 04/03/16 at 15:59; Status DC Sodium Chloride (Iv Sodium Chloride 0.9% 1000ml Bag) 1,000 ml @ 50 mls/hr Q20H IV Last administered on 04/03/16 17:26; Start 04/03/16 at 16:15; Stop at 11:27; Status DC Acetaminophen (Tylenol) 650 mg 1X ONCE W[place] Last administered on 04/03/16 16:38 ; Start 04/03/16 at 16:30; Stop 04/03/16 at 16:31; Status DC Aspirin (Aspirin) 150 mg 1X ONCE WV Last administered on 04/03/16 17:24; Start 04/03/16 at 17:15; Stop 04/03/16 at 17:16; Status DC Digoxin 500 mcg 500 mcg 1X ONCE IV Last administered on 04/03/16 17:25; Start 04/03/16 at 17:15; Stop 04/03/16 at 17:16; Status DC Diltiazem HCl/ Dextrose (Cardizem) 125 ml @ 0 mls/hr CONT PRN IV SEE I/O RECORD Last administered on 04/05/16 01:25; Start 04/03/16 at 22:15 Info (Do NOT chart on this placeholder) 0.5 each 1X ONCE MC ; Start 04/04/16 at 09:00; Stop 04/04/16 at 09:01; Status UNV Influenza Virus Vaccine Quadrival 0.5 ml 0.5 ml ONCE ONCE VAX IM Last administered on 04/04/16 09:18; Start 04/04/16 at 09:00; Stop 04/04/16 at 09:01 ; Status DC Potassium Chloride/Sodium Chloride 1,000 ml @ 75 mls/hr [id number] IV Last administered on 04/05/16 05:30; Start 04/04/16 at 11:30; Stop 04/05/16 at 11:50 ; Status DC Potassium Chloride (KCl Premix 10meq) 100 ml @ 100 mls/hr Q1H IV Last administered on 04/04/16 15:27; Start 04/04/16 at 12:00; Stop 04/04/16 at 15:59 ; Status DC Fentanyl Citrate (Fentanyl 2ml Vial) 25 mcg PRN Q2HR PRN IV PAIN SEVERE; Start 04/04/16 at 11:45 Iohexol (Omnipaque 300 Mg/ml) 75 ml 1X ONCE IV Last administered on 04/04/16 12:00; Start 04/04/16 at 11:45; Stop 04/04/16 at 11:47; Status DC Info (Do NOT chart on this entry -- for MONITORING) 1 each PRN DAILY PRN MC SEE COMMENTS; Start 04/04/16 at 12:00; Stop 04/06/16 at 11:59 Barium Sulfate 148 gm 148 gm 1X ONCE PO Last administered on 04/05/16 11:02; Start 04/05/16 at 10:15; Stop 04/05/16 at 10:16; Status DC Amino Acids/ Glycerin/ Electrolytes (Procalamine) 1,000 ml @ 80 mls/hr [id number] IV Last administered on 04/05/16 12:09; Start 04/05/16 at 11:45 Acetaminophen (Tylenol) 650 mg PRN Q6HRS PRN PO PAIN; Start 04/05/16 at 12:30 Acetaminophen/ Hydrocodone Bitart (Lortab 7.5/325) 1 tab PRN Q6HRS PRN PO PAIN ; Start 04/05/16 at 12:30 Levothyroxine Sodium (Synthroid) 50 mcg 07 PO ; Start 04/06/16 at 07:00 Paroxetine HCl (Paxil) 20 mg DAILY PO Last administered on 04/05/16 12:54; Start 04/05/16 at 13:00 Atorvastatin Calcium (Lipitor) 80 mg QHS PO ; Start 04/05/16 at 21:00 Pantoprazole Sodium (Protonix) 40 mg DAILYAC PO Last administered on 04/05/16 12:54; Start 04/05/16 at 12:30 Diltiazem HCl (Cardizem) 60 mg Q8HRS PO Last administered on 04/05/16 13:58; Start 04/05/16 at 14:00 Active Scripts Active Reported Hydrocodone-Apap 7.5-325 (Hydrocodone Bit/Acetaminophen) 1 Each Tablet 1 Tab PO Q4-6HRS PRN Acetaminophen 500 Mg Tablet 1,000 Mg PO HS Atorvastatin Calcium 80 Mg Tablet 1 Tab PO DAILY Lisinopril 5 Mg Tablet 1 Tab PO DAILY Multi-Day Vitamins (Multivitamin) 1 Each Tablet 1 Tab PO DAILY Levothyroxine Sodium 50 Mcg Tablet 1 Tab PO DAILY Acetaminophen 325 Mg Tablet 650 Mg PO Aspir 81 (Aspirin) 81 Mg Tablet. 1 Tab PO DAILY Prilosec Otc (Omeprazole Magnesium) 20 Mg Tablet. 1 Tab PO DAILY Paxil (Paroxetine Hcl) 20 Mg Tablet 1 Tab PO DAILY Allergies Allergies: Coded Allergies: ezetimibe (Verified Allergy, Severe, Hives, 04/03/16) ROS General: YES: Fatigue Respiratory: YES: Cough Gastrointestinal: Yes Abdominal Pain Physical Exam General: Alert, Oriented X3 HEENT: Atraumatic, EOMI Lungs: Clear to auscultation, Normal air movement Heart: Other (Irreg Irreg, 4/6 systolic murmur) Abdomen: Normal bowel sounds, Soft, No tenderness Extremities: No clubbing, No edema, Normal pulses Neuro: Normal speech, Sensation intact MUSCULOSKELETAL: No joint tenderness, No swelling Vitals VITALS Vital Signs Date Time Temp Pulse Resp B/P Pulse Ox O2 Delivery O2 Flow Rate FiO2 04/05/16 14:29 97.8 77 20 106/53 96 Room Air 97.8 04/05/16 08:00 3.0 Labs Labs Laboratory Tests Test 04/03/16 20:45 04/04/16 02:15 04/05/16 05:28 Troponin I Quantitative 0.192ng/mL (0.000-0.055) 0.162ng/mL (0.000-0.055) White Blood Count 9.0x10^3/uL (4.0-11.0) 6.5x10^3/uL (4.0-11.0) Red Blood Count 3.36x10^6/uL (4.30-5.70) 3.11x10^6/uL (4.30-5.70) Hemoglobin 8.9g/dL (13.0-17.5) 8.2g/dL (13.0-17.5) Hematocrit 27.4% (39.0-53.0) 25.9% (39.0-53.0) Mean Corpuscular Volume 82fL (79-100) 83fL (79-100) Mean Corpuscular Hemoglobin 26pg (25-35) 27pg (25-35) Mean Corpuscular Hemoglobin Concent 32g/dL (31-37) 32g/dL (31-37) Red Cell Distribution Width 18.5% (11.5-14.5) 18.3% (11.5-14.5) Platelet Count 86x10^3/uL (140-400) 85x10^3/uL (140-400) Neutrophils (%) (Auto) 75% (31-73) 61% (31-73) Lymphocytes (%) (Auto) 12% (24-48) 19% (24-48) Monocytes (%) (Auto) 13% (0-9) 19% (0-9) Eosinophils (%) (Auto) 0% (0-3) 0% (0-3) Basophils (%) (Auto) 1% (0-3) 1% (0-3) Neutrophils # (Auto) 6.7x10^3uL (1.8-7.7) 4.0x10^3uL (1.8-7.7) Lymphocytes # (Auto) 1.0x10^3/uL (1.0-4.8) 1.3x10^3/uL (1.0-4.8) Monocytes # (Auto) 1.1x10^3/uL (0.0-1.1) 1.2x10^3/uL (0.0-1.1) Eosinophils # (Auto) 0.0x10^3/uL (0.0-0.7) 0.0x10^3/uL (0.0-0.7) Basophils # (Auto) 0.1x10^3/uL (0.0-0.2) 0.0x10^3/uL (0.0-0.2) Sodium Level 135mmol/L (136-145) 136mmol/L (136-145) Potassium Level 3.2mmol/L (3.5-5.1) 3.8mmol/L (3.5-5.1) Chloride Level 101mmol/L (98-107) 104mmol/L (98-107) Carbon Dioxide Level 23mmol/L (21-32) 19mmol/L (21-32) Anion Gap 11 (6-14) 13 (6-14) Blood Urea Nitrogen 28mg/dL (8-26) 23mg/dL (8-26) Creatinine 1.0mg/dL (0.7-1.3) 0.8mg/dL (0.7-1.3) Estimated GFR (Cockcroft-Gault) 71.0 91.9 Glucose Level 94mg/dL (70-99) 87mg/dL (70-99) Calcium Level 7.8mg/dL (8.5-10.1) 7.8mg/dL (8.5-10.1) Segmented Neutrophils % 46% (35-66) Band Neutrophils % 16% (0-9) Lymphocytes % 16% (24-48) Atypical Lymphocytes % (Manual) 9% (0-0) Monocytes % 13% (0-10) Platelet Estimate Decreased (ADEQUATE) Large Platelets Present Poikilocytosis Marked Microcytosis Present Macrocytosis Present Spherocytes Few Ovalocytes Many Schistocytes Mod RBC Morphology Bizarre Forms Many BUN/Creatinine Ratio 29 (6-20) Iron Level 21ug/dL (65-175) Total Iron Binding Capacity 241ug/dL (250-450) Iron Saturation 9% (15-34) Total Bilirubin 1.0mg/dL (0.2-1.0) Aspartate Amino Transf (AST/SGOT) 65U/L (15-37) Alanine Aminotransferase (ALT/SGPT) 34U/L (16-63) Alkaline Phosphatase 91U/L (46-116) Total Protein 6.2g/dL (6.4-8.2) Albumin 2.3g/dL (3.4-5.0) Albumin/Globulin Ratio 0.6 (1.0-1.7) Laboratory Tests Test 04/05/16 05:28 White Blood Count 6.5x10^3/uL (4.0-11.0) Red Blood Count 3.11x10^6/uL (4.30-5.70) Hemoglobin 8.2g/dL (13.0-17.5) Hematocrit 25.9% (39.0-53.0) Mean Corpuscular Volume 83fL (79-100) Mean Corpuscular Hemoglobin 27pg (25-35) Mean Corpuscular Hemoglobin Concent 32g/dL (31-37) Red Cell Distribution Width 18.3% (11.5-14.5) Platelet Count 85x10^3/uL (140-400) Neutrophils (%) (Auto) 61% (31-73) Lymphocytes (%) (Auto) 19% (24-48) Monocytes (%) (Auto) 19% (0-9) Eosinophils (%) (Auto) 0% (0-3) Basophils (%) (Auto) 1% (0-3) Neutrophils # (Auto) 4.0x10^3uL (1.8-7.7) Lymphocytes # (Auto) 1.3x10^3/uL (1.0-4.8) Monocytes # (Auto) 1.2x10^3/uL (0.0-1.1) Eosinophils # (Auto) 0.0x10^3/uL (0.0-0.7) Basophils # (Auto) 0.0x10^3/uL (0.0-0.2) Segmented Neutrophils % 46% (35-66) Band Neutrophils % 16% (0-9) Lymphocytes % 16% (24-48) Atypical Lymphocytes % (Manual) 9% (0-0) Monocytes % 13% (0-10) Platelet Estimate Decreased (ADEQUATE) Large Platelets Present Poikilocytosis Marked Microcytosis Present Macrocytosis Present Spherocytes Few Ovalocytes Many Schistocytes Mod RBC Morphology Bizarre Forms Many Sodium Level 136mmol/L (136-145) Potassium Level 3.8mmol/L (3.5-5.1) Chloride Level 104mmol/L (98-107) Carbon Dioxide Level 19mmol/L (21-32) Anion Gap 13 (6-14) Blood Urea Nitrogen 23mg/dL (8-26) Creatinine 0.8mg/dL (0.7-1.3) Estimated GFR (Cockcroft-Gault) 91.9 BUN/Creatinine Ratio 29 (6-20) Glucose Level 87mg/dL (70-99) Calcium Level 7.8mg/dL (8.5-10.1) Iron Level 21ug/dL (65-175) Total Iron Binding Capacity 241ug/dL (250-450) Iron Saturation 9% (15-34) Total Bilirubin 1.0mg/dL (0.2-1.0) Aspartate Amino Transf (AST/SGOT) 65U/L (15-37) Alanine Aminotransferase (ALT/SGPT) 34U/L (16-63) Alkaline Phosphatase 91U/L (46-116) Total Protein 6.2g/dL (6.4-8.2) Albumin 2.3g/dL (3.4-5.0) Albumin/Globulin Ratio 0.6 (1.0-1.7) Images Images CT abd/pel 04/04/16 IMPRESSION: 1. Interval repair of a distal abdominal aortic aneurysm with an aortobifemoral graft in place. 2. Large right common iliac artery aneurysm which has increased in size since 08/21/2011. 3. Small left common iliac artery aneurysm. 4. 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 5. Mild colonic diverticulosis. 6. Small umbilical and periumbilical hernias containing only fat. 7. Small bilateral pleural effusions have developed with mild bibasilar atelectasis. ECHOCARDIOGRAM 03/04/16 <Conclusion> Inferior basal wall hypokinesis. The Ejection Fraction is 45-50%. The left atrium is mildly dilated. Moderate aortic stenosis with mean pressure gradient of 23 mmHg. Moderate mitral regurgitation. Moderate tricuspid regurgitation. The PA pressure was estimated at 56 mmHg. There is no evidence of significant pericardial effusion. STRESS TEST 2015 Conclusion 1. Regadenoson cardioisotope stress test showed moderate infarct involving the base to mid inferior wall without any ischemia. 2. Also seen was a small infarct involving the apical wall without any ischemia. 3. Inferior wall hypokinesis with ejection fraction calculated at 49%. 4. Low to intermediate risk for cardiac events. Assessment/Plan Assessment/Plan 1. Afib / RVR 2. Dysphagia 3. 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 HTN 5. HLD The CT scan was reviewed, and the R iliac artery aneurysm was 6 x 4.3 and the left iliac aneurysm 4 x 3.5 cm s/p aortobifemoral bypass in 2011. There are no recent films to compare aneurysm progression. The patient has a preserved EF, but does have prior [place] with history of CABG and stents with elevated troponins - stress induced -and elevated PA pressure at 56 mm hg. I will discuss with cardiology regarding risk of surgery, and would need risk stratification for surgical intervention. The family and patient is considering surgical repair but they are cautious given his age and recent decline in his health. No need for further vascular imaging. Continue current medical care. HUBERT CALDERON MD Apr 05, 2016 20:01
[2016-04-05] MEDS: ATORVASTATIN CALCIUM 40 MG TABLET. PO SCH (20:53)
[2016-04-05 23:02] VITALS: BP 111/59
[2016-04-06 02:43] VITALS: BP 117/61
[2016-04-06 05:15] LABS: BASO # 0.1 x10^3/uL (0.0-0.2); BASO % 1 % (0-3); EOS % 1 % (0-3); HEMATOCRIT 25.8 % (39.0-53.0); HEMOGLOBIN 8.4 g/dL (13.0-17.5); LYMPH # 1.7 x10^3/uL (1.0-4.8); LYMPH % 23 % (24-48); MEAN CORPUSCULAR HEMOGLOBIN 26 pg (25-35); MEAN CORPUSCULAR HGB CONC 32 g/dL (31-37); MEAN CORPUSCULAR VOLUME 81 fL (79-100); MONO % 17 % (0-9); NEUT % 59 % (31-73); PLATELET COUNT 81 x10^3/uL (140-400); RED CELL DISTRIBUTION WIDTH 18.7 % (11.5-14.5); WHITE BLOOD COUNT 7.3 x10^3/uL (4.0-11.0)
[2016-04-06] MEDS: DILTIAZEM HCL 30 MG TABLET PO SCH (06:11)
[2016-04-06] MEDS: LEVOTHYROXINE 50 MCG TABLET PO SCH (06:11)
[2016-04-06 07:13] VITALS: BP 113/62
--- NOTE | 2016-04-06 07:55 | PDOC ---
SUBJECTIVE Subjective Denies any chest pain. No shortness of breath. No palpitations. Still not really eating much due to no appetite but also getting used to the change to a dysphagia diet. Not sure about doing surgery for the aneurysm. Still feels pretty weak and unsure about going to rehabilitation at the time of discharge OBJECTIVE Vital Signs Vital Signs Date Time Temp Pulse Resp B/P Pulse Ox O2 Delivery O2 Flow Rate FiO2 04/06/16 07:13 97.9 75 18 113/62 96 Room Air 97.9 04/06/16 06:11 101 117/63 04/06/16 02:43 97.8 78 20 117/61 95 Room Air 97.8 04/05/16 23:02 98.1 72 20 111/59 95 Room Air 98.1 04/05/16 20:56 81 106/61 04/05/16 20:00 Room Air 04/05/16 19:59 97.9 79 18 122/59 97 Room Air 97.9 04/05/16 14:29 97.8 77 20 106/53 96 Room Air 97.8 04/05/16 13:58 74 116/61 04/05/16 08:00 Room Air 3.0 I & O Intake and Output 04/06/16 07:00 Intake Total 620 ml Output Total 650 ml Balance -30 ml Intake Oral 120 ml IV Total 500 ml Output Urine Total 650 ml # Bowel Movements 1 PHYSICAL EXAM Physical Exam General: No acute distress. Laying in bed without supplemental oxygen Mental status: Alert and oriented. Chest: Okay air movement. Occasional crackles at the left base. Mildly decreased air movement at the right base. CV: Irregularly irregular rhythm. Rate controlled on telemetry. 2/6 systolic murmur. Abdomen: Normal bowel sounds. Soft. Not distended. No tenderness. No guarding. No rebound. Extremities: Trace bilateral lower extremity edema ASSESSMENT/PLAN Assessment/Plan 1. A. fib with RVR: Still appears to have an irregular rhythm on telemetry. Started on oral Cardizem per cardiology. Continue per their recommendations. 2. Abdominal pain: CT scan noted. Diverticulosis. Consult GI. 3. Congestive heart failure likely secondary to the atrial fibrillation/RVR and the combination of systolic and diastolic dysfunction: Continue to monitor and per cardiology. 4. Anemia, iron deficient: Possibly due to dilutional effect of fluids. We'll consult GI since he has been having some abdominal pain as well. 5. Prerenal azotemia secondary to volume depletion and poor by mouth intake: Change to ProcalAmine to ensure adequate nutrition since he has had poor nutrition over the last several weeks most likely. Encouraged oral nutrition and we'll see how he does with that. If he is taking adequate oral intake then we can discontinue the ProcalAmine. 6. Elevated troponins secondary to demand ischemia from A. fib: Continue per cardiology. 7. Dysphagia symptoms with difficulty swallowing and cough: Speech eval noted. Possibly due to weakness from being ill over the last couple weeks. Hopefully this will improve as his strength improves with better nutrition. Dysphagia 1 diet for now. 8. Abnormal glucose: Continue to monitor as needed. 9. Hypertension: Stable. Adjust medications as noted. 10. Valvular disease including moderate , mod MR, mod TR: Stable, continue per cardiology. 11. History of depression: Stable. 12. Hypokalemia: Improved post replacement 13. Right common iliac aneurysm increased to 6 x 4 cm size with possible retrograde filling: He is status post aortobifemoral bypass but we will have vascular surgery look at the films and patient to see if we need to do anything else. He has noticed some fullness in his right lower pelvis in the last week or 2 intermittently. Not sure that he would pursue surgery if that were the recommended treatment. He did want to know what his recovery would be like. 14. Disposition: Continue evaluation by physical therapy as well as GI and vascular surgery. Once decision has been made regarding vascular surgery options and GI evaluation then we will see if he needs [facility] due to weakness per physical therapy evaluation. If that is the case we'll encourage [facility] for a short period of time. Problems: COMMENT Lab Laboratory Tests Test 04/06/16 04:30 White Blood Count 7.3x10^3/uL (4.0-11.0) Red Blood Count 3.20x10^6/uL (4.30-5.70) Hemoglobin 8.4g/dL (13.0-17.5) Hematocrit 25.8% (39.0-53.0) Mean Corpuscular Volume 81fL (79-100) Mean Corpuscular Hemoglobin 26pg (25-35) Mean Corpuscular Hemoglobin Concent 32g/dL (31-37) Red Cell Distribution Width 18.7% (11.5-14.5) Platelet Count 81x10^3/uL (140-400) Neutrophils (%) (Auto) 59% (31-73) Lymphocytes (%) (Auto) 23% (24-48) Monocytes (%) (Auto) 17% (0-9) Eosinophils (%) (Auto) 1% (0-3) Basophils (%) (Auto) 1% (0-3) Neutrophils # (Auto) 4.3x10^3uL (1.8-7.7) Lymphocytes # (Auto) 1.7x10^3/uL (1.0-4.8) Monocytes # (Auto) 1.2x10^3/uL (0.0-1.1) Eosinophils # (Auto) 0.1x10^3/uL (0.0-0.7) Basophils # (Auto) 0.1x10^3/uL (0.0-0.2) LIVAN LAM MD Apr 06, 2016 07:55
[2016-04-06 09:26] LABS: ALBUMIN 2.3 g/dL (3.4-5.0); ALBUMIN/GLOBULIN RATIO 0.6 (1.0-1.7); CALCIUM 7.4 mg/dL (8.5-10.1); CREATININE 0.8 mg/dL (0.7-1.3); GFR 91.9; POTASSIUM 4.2 mmol/L (3.5-5.1); TOTAL BILIRUBIN 0.9 mg/dL (0.2-1.0)
[2016-04-06] MEDS: PAROXETINE 20 MG TABLET. PO SCH (10:07)
[2016-04-06] MEDS: PANTOPRAZOLE 40 MG TABLET. PO SCH (10:07)
[2016-04-06 10:39] VITALS: BP 109/56
[2016-04-06] MEDS: AA 3%/ELECTROLYTE-TPN SOLN/GLY 1,000 ML IV SCH (10:49)
[2016-04-06] MEDS: DILTIAZEM HCL 180 MG CAP.ER.24H PO SCH (10:49)
[2016-04-06] MEDS: ASPIRIN ENTERIC COATED 81 MG TABLET.DR. PO SCH (10:56)
--- NOTE | 2016-04-06 10:56 | PDOC2 ---
GI CONSULT Reason For Consult: JACKLYN, weight loss HPI: HPI: 86 y/o male admitted w/ fever and A Fib w/ RVR. Labs Hgb 8.4 (from 9.8), INR 1.3, BUN 23, Cr 0.8, iron 21, TIBC 241, sat 7, elevated BNP and troponin. On imaging has enlarging right iliac aneurysm and is considering surgery. Additionally has had some abdominal pain for awhile, decreased appetite w/ intermittent n/v, coughing w/ eating, weight loss (estimates 30 pounds in a few months), and alternating diarrhea and constipation w/ occasion "reddish stools. " On Prilosec and ASA at home. 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 GI history: colonoscopy 2001 w/ tubular adenoma, diverticulosis, AVM; EGD 2001 w / small duod ulcer, hiatal hernia, negative MARY test for H. pylori; diverticulitis in 2011. PMH: PMH: CAD, CHF, HTN, HLD, aortic stenosis, AAA s/p repair, GERD, anemia, anxiety, OA, cervical stensosi, UTI, BPH, hypothyroidism, CABG, right TKR, Tonsillectomy, prostatectomy, aortobifemoral bypass FH: Family History: CAD Social History: Smoke: No (remotely quit) ALCOHOL: occassional Drugs: None ROS: GEN: Denies fevers, chills, sweats HEENT: Denies blurred vision, sore throat CV: Denies chest pain RESP: Denies shortness of air, cough GI: Per HPI : Denies hematuria, dysuria ENDO: Denies weight changes NEURO: Denies confusion, dizziness MSK: Denies weakness, joint pain/swelling SKIN: Denies jaundice, pruritus VItals: Vitals: Vital Signs Date Time Temp Pulse Resp B/P Pulse Ox O2 Delivery O2 Flow Rate FiO2 04/06/16 10:39 98.4 75 22 109/56 97 Room Air 98.4 04/05/16 08:00 3.0 Labs: Labs: Laboratory Tests Test 04/06/16 04:30 04/06/16 08:29 White Blood Count 7.3x10^3/uL (4.0-11.0) Red Blood Count 3.20x10^6/uL (4.30-5.70) Hemoglobin 8.4g/dL (13.0-17.5) Hematocrit 25.8% (39.0-53.0) Mean Corpuscular Volume 81fL (79-100) Mean Corpuscular Hemoglobin 26pg (25-35) Mean Corpuscular Hemoglobin Concent 32g/dL (31-37) Red Cell Distribution Width 18.7% (11.5-14.5) Platelet Count 81x10^3/uL (140-400) Neutrophils (%) (Auto) 59% (31-73) Lymphocytes (%) (Auto) 23% (24-48) Monocytes (%) (Auto) 17% (0-9) Eosinophils (%) (Auto) 1% (0-3) Basophils (%) (Auto) 1% (0-3) Neutrophils # (Auto) 4.3x10^3uL (1.8-7.7) Lymphocytes # (Auto) 1.7x10^3/uL (1.0-4.8) Monocytes # (Auto) 1.2x10^3/uL (0.0-1.1) Eosinophils # (Auto) 0.1x10^3/uL (0.0-0.7) Basophils # (Auto) 0.1x10^3/uL (0.0-0.2) Sodium Level 138mmol/L (136-145) Potassium Level 4.2mmol/L (3.5-5.1) Chloride Level 105mmol/L (98-107) Carbon Dioxide Level 21mmol/L (21-32) Anion Gap 12 (6-14) Blood Urea Nitrogen 22mg/dL (8-26) Creatinine 0.8mg/dL (0.7-1.3) Estimated GFR (Cockcroft-Gault) 91.9 BUN/Creatinine Ratio 28 (6-20) Glucose Level 119mg/dL (70-99) Calcium Level 7.4mg/dL (8.5-10.1) Total Bilirubin 0.9mg/dL (0.2-1.0) Aspartate Amino Transf (AST/SGOT) 58U/L (15-37) Alanine Aminotransferase (ALT/SGPT) 40U/L (16-63) Alkaline Phosphatase 143U/L (46-116) Total Protein 6.0g/dL (6.4-8.2) Albumin 2.3g/dL (3.4-5.0) Albumin/Globulin Ratio 0.6 (1.0-1.7) Allergies: Coded Allergies: ezetimibe (Verified Allergy, Severe, Hives, 04/03/16) Medications: Current Medications Medications (Trade) Dose Ordered Sig/Harlan Route PRN Reason Start Time Stop Time Status Last Admin Dose Admin Amino Acids/ Glycerin/ Electrolytes (Procalamine) 1,000 ml @ 80 mls/hr [id number] IV 04/05/16 11:45 04/05/16 23:28 Levothyroxine Sodium (Synthroid) 50 mcg 07 PO 04/06/16 07:00 04/06/16 06:11 Paroxetine HCl (Paxil) 20 mg DAILY PO 04/05/16 13:00 04/06/16 10:07 Atorvastatin Calcium (Lipitor) 80 mg QHS PO 04/05/16 21:00 04/05/16 20:53 Pantoprazole Sodium (Protonix) 40 mg DAILYAC PO 04/05/16 12:30 04/06/16 10:07 Diltiazem HCl (Cardizem) 60 mg Q8HRS PO 04/05/16 14:00 04/06/16 10:21 DC 04/06/16 06:11 Imaging: Imaging: Videoswallow 04/05/16 IMPRESSION: 1. Deep laryngeal penetration and minimal janeen aspiration with the thin liquids which abated when the honey thickened material was utilized. 2. Moderate vallecular residue with the thicker materials and barium coated solids. CT A/P w/ IV contrast 04/04/16 IMPRESSION: 1. Interval repair of a distal abdominal aortic aneurysm with an aortobifemoral graft in place. 2. Large right common iliac artery aneurysm which has increased in size since 08/21/2011. 3. Small left common iliac artery aneurysm. 4. 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 5. Mild colonic diverticulosis. 6. Small umbilical and periumbilical hernias containing only fat. 7. Small bilateral pleural effusions have developed with mild bibasilar atelectasis. CXR 04/03/16 IMPRESSION: Mild cardiomegaly. Suspect superimposed mild pulmonary vascular congestion. Small bilateral pleural effusions. PE: GEN: NAD HEENT: Atraumatic, PERRL LUNGS: CTAB HEART: RRR +murm ABD: diffusely tender (nonspecific), BS+, non-distended EXTREMITY: No edema SKIN: No rashes, no jaundice NEURO/PSYCH: A & O 3, speaks slowly A/P: A/P: Anemia Abdominal pain N/v, decreased appetite, weight loss Alternating bowel habits, ?blood in stools Dysphagia Right common iliac aneurysm -- Likely anemia of chronic disease; will monitor labs and consider outpatient EGD and colonoscopy. Add PPI. ARMANDO STANFORD Apr 06, 2016 10:56
--- NOTE | 2016-04-06 11:42 | PDOC ---
CARDIO Progress Notes Date and Time Date of Service 04/06/2016 Time of Evaluation 1030 Subjective Subjective: No Chest Pain, No shortness of breath, No Palpitations Vitals Vitals Vital Signs Date Time Temp Pulse Resp B/P Pulse Ox O2 Delivery O2 Flow Rate FiO2 04/06/16 10:49 89 109/56 04/06/16 10:39 98.4 22 97 Room Air 98.4 04/05/16 08:00 3.0 Weight Weight [ ] Input and Output Intake and Output Intake and Output 04/06/16 07:00 Intake Total 620 ml Output Total 650 ml Balance -30 ml Intake Oral 120 ml IV Total 500 ml Output Urine Total 650 ml # Bowel Movements 1 Laboratory Labs Laboratory Tests Test 04/06/16 04:30 04/06/16 08:29 White Blood Count 7.3x10^3/uL (4.0-11.0) Red Blood Count 3.20x10^6/uL (4.30-5.70) Hemoglobin 8.4g/dL (13.0-17.5) Hematocrit 25.8% (39.0-53.0) Mean Corpuscular Volume 81fL (79-100) Mean Corpuscular Hemoglobin 26pg (25-35) Mean Corpuscular Hemoglobin Concent 32g/dL (31-37) Red Cell Distribution Width 18.7% (11.5-14.5) Platelet Count 81x10^3/uL (140-400) Neutrophils (%) (Auto) 59% (31-73) Lymphocytes (%) (Auto) 23% (24-48) Monocytes (%) (Auto) 17% (0-9) Eosinophils (%) (Auto) 1% (0-3) Basophils (%) (Auto) 1% (0-3) Neutrophils # (Auto) 4.3x10^3uL (1.8-7.7) Lymphocytes # (Auto) 1.7x10^3/uL (1.0-4.8) Monocytes # (Auto) 1.2x10^3/uL (0.0-1.1) Eosinophils # (Auto) 0.1x10^3/uL (0.0-0.7) Basophils # (Auto) 0.1x10^3/uL (0.0-0.2) Sodium Level 138mmol/L (136-145) Potassium Level 4.2mmol/L (3.5-5.1) Chloride Level 105mmol/L (98-107) Carbon Dioxide Level 21mmol/L (21-32) Anion Gap 12 (6-14) Blood Urea Nitrogen 22mg/dL (8-26) Creatinine 0.8mg/dL (0.7-1.3) Estimated GFR (Cockcroft-Gault) 91.9 BUN/Creatinine Ratio 28 (6-20) Glucose Level 119mg/dL (70-99) Calcium Level 7.4mg/dL (8.5-10.1) Total Bilirubin 0.9mg/dL (0.2-1.0) Aspartate Amino Transf (AST/SGOT) 58U/L (15-37) Alanine Aminotransferase (ALT/SGPT) 40U/L (16-63) Alkaline Phosphatase 143U/L (46-116) Total Protein 6.0g/dL (6.4-8.2) Albumin 2.3g/dL (3.4-5.0) Albumin/Globulin Ratio 0.6 (1.0-1.7) Microbiology Micro Microbiology 04/03/16 Blood Culture - Preliminary, Resulted NO GROWTH AFTER 2 DAYS Physical Exam HEENT: Neck Supple W Full Motion Chest: Symmetric LUNGS: Other (bibasilar crackles) Heart: S1S2, irregularly irregular Abdomen: Soft N/T Extremities: No Calf Tenderness Neurology: alert, oriented, follow commands Assessment Assessment 1. Dysphagia with aspiration: Notable for previous fever. Swallowing a little better, noted with dysphagia 1 diet. GI has been consulted. Closely followed by speech. 3. AFIB RVR: Rate controlled with cardizem and will convert to CD from IR today. Appears to be new onset but likely paroxysmal episode given his increased susceptibility via age/valvular disease. 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 Sustaining rhythm control post cardioversion will be likely low plus he is not a good candidate for OAC/NOAC. Maintain ECASA for stroke prevention. MCOT when discharge and note afib burden and will discuss any possibility of future cardioversion. 4. Acute on chronic systolic CHF: Likely induced by above. Known ICM with last EF of 45-50% 02/2016. Clinically compensated. 5. CAD: CABG in the past. CP free. Last MPI 11/2014 with no ischemia. Troponin peaked at 0.174, demand mediated related to above concurrent acute conditions. Continue with secondary prevention as tolerated. 6. 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 Stable. 7. Prerenal azotemia: dehydration complicated by CHF. Now corrected. 8. Right groin pain with known PAD: mainly with ambulation. Plan as noted below 9. AAA/PAD: s/p aortobifemoral bypass and complex surgical AAA repair. 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 He has high mortality risk and poor surgical candidate for any open repair with notable concurrent chronic conditions, advanced age, malnutrition, deconditioning, prior SDH, and with his significant valvular disease which needs to be addressed first before any significant vascular surgery. Pt is to follow up in our office in regards to his CV status after his primary acute condition is better and will reevaluate any future cardiac workup going forward if indeed he wants to pursue any further vascular surgery. Pt also mentioned discussing this significantly with family and I have talked to pt in regards to this and verbalized hesitancy of any surgical interventions. 10. Intermittent abdominal pain with mild transaminitis: better. Will defer to PCP. 11. HTN: well controlled. 12. HLP: statin, lipids well controlled. 13. Hypothyroidism: on replacement. 14. Hx of chronic right SDH: noted on CT 05/2015. Failed to f/u with neurology. Defer to PCP 15. Likely Dementia: notable for cerebral atrophy [employer] Apr 06, 2016 11:42
[2016-04-06 15:07] VITALS: BP 126/65
--- NOTE | 2016-04-06 18:23 | PDOC ---
Provider Note Provider Note Vascular Surgery Note: S: Patient is resting in bed, eating dinner. 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 Awaiting final recommendations by cardiology on need for further evaluation for risk stratification. GI has also been consulted for his poor appetite. No plans for immediate surgical intervention. Will continue to discuss if he is interested in surgical intervention. They are aware if no surgery is performed, there is a risk of rupture that would be fatal. HUBERT CALDERON MD Apr 06, 2016 18:23
[2016-04-06 20:00] VITALS: BP 122/71
[2016-04-06] MEDS: ATORVASTATIN CALCIUM 40 MG TABLET. PO SCH (21:27)
[2016-04-06 23:15] VITALS: BP 122/62
[2016-04-07] MEDS: AA 3%/ELECTROLYTE-TPN SOLN/GLY 1,000 ML IV SCH ×2 (01:54→14:00)
[2016-04-07 03:10] VITALS: BP 119/58
[2016-04-07] MEDS: LEVOTHYROXINE 50 MCG TABLET PO SCH (06:21)
[2016-04-07 07:00] VITALS: BP 126/60
[2016-04-07] MEDS ORDERED: PANTOPRAZOLE 40 MG TABLET. PO SCH (07:30)
[2016-04-07] MEDS: ASPIRIN ENTERIC COATED 81 MG TABLET.DR. PO SCH (07:44)
[2016-04-07] MEDS: PANTOPRAZOLE 40 MG TABLET. PO SCH (07:44)
[2016-04-07] MEDS: PAROXETINE 20 MG TABLET. PO SCH (09:17)
[2016-04-07] MEDS: DILTIAZEM HCL 180 MG CAP.ER.24H PO SCH (09:17)
--- NOTE | 2016-04-07 09:23 | PDOC ---
Subjective: Subjective: Long discussion w/ pt and family member, Danielle. Waiting to see cardiology after discussion w/ vasc surg last night. Overwhelmed w/ information from different doctors. No specific GI complaints today other than poor appetite. Eventually reports that he had a BM yesterday. Danielle asked about Miralax but feels it would be best not to start this. Asks about diverticulitis. Objective: Objective: Per RN - no bleeding. Reviewed vascular note. Vital Signs: Vital Signs Date Time Temp Pulse Resp B/P Pulse Ox O2 Delivery O2 Flow Rate FiO2 04/07/16 08:25 Room Air 04/07/16 07:00 97.6 77 18 126/60 97 97.6 04/06/16 08:00 3.0 Imaging: Videoswallow 04/05/16 IMPRESSION: 1. Deep laryngeal penetration and minimal janeen aspiration with the thin liquids which abated when the honey thickened material was utilized. 2. Moderate vallecular residue with the thicker materials and barium coated solids. PE: GEN: NAD LUNGS: CTAB anteriorly HEART: RRR ABD: BS+, S/ND/NT NEURO/PSYCH: A & O 3 OTHER: family present A/P: Anemia -hemoccult uncollected Abdominal pain - resolved -clarified diverticulosis/diverticulitis Decreased appetite, weight loss -on PPI Dysphagia Alternating bowel habits -discussed Miralax, pt/family prefer to wait -last BM yesterday Right common iliac aneurysm -vasc surg has seen -- Await decision re: surgery, cardiac recs. Consider outpatient EGD and colonoscopy. ARMANDO STANFORD Apr 07, 2016 09:23
[2016-04-07 10:46] VITALS: BP 149/75
--- NOTE | 2016-04-07 11:44 | PDOC ---
Provider Note Provider Note Vascular F/U F/U recurrance of velma. Common iliac aneurysms below prior suturing Rt. 6x4.5, lt 3.3x2.5 Appreciate input from cardiology Has 2+ po;pliteal pulses Imp: Large velma. CIAAs Plan: Will discuss with partners re any possible solution other than open repair NOREEN PEREZ MD Apr 07, 2016 11:44
[2016-04-07 14:54] VITALS: BP 109/58
--- NOTE | 2016-04-07 16:09 | PDOC ---
SUBJECTIVE Subjective Still vacillating about whether to get procedure done or not. He understands that there is definitely risk with doing surgery and also with not doing surgery. He denies any shortness of breath. No chest pain. He still not eating much. His family states that he has been having some visual hallucinations of seeing a person standing in the bathroom and a cat jumping up and down on his bed all night long. OBJECTIVE Vital Signs Vital Signs Date Time Temp Pulse Resp B/P Pulse Ox O2 Delivery O2 Flow Rate FiO2 04/07/16 14:54 97.6 69 18 109/58 95 Room Air 97.6 04/07/16 10:46 97.7 79 18 149/75 97 Room Air 97.7 04/07/16 09:17 77 126/60 04/07/16 08:25 Room Air 04/07/16 07:00 97.6 77 18 126/60 97 Room Air 97.6 04/07/16 03:10 98.2 92 20 119/58 95 Room Air 98.2 04/06/16 23:15 97.7 89 18 122/62 96 Room Air 97.7 04/06/16 20:30 Room Air 04/06/16 20:00 97.8 80 22 122/71 96 Room Air 97.8 I & O Intake and Output 04/07/16 07:00 Intake Total 1340 ml Output Total 1600 ml Balance -260 ml Intake Oral 390 ml IV Total 950 ml Output Urine Total 1600 ml PHYSICAL EXAM Physical Exam General: No acute distress. Laying in bed without supplemental oxygen Mental status: Alert and oriented. Occasional mild confusion Chest: Okay air movement. Clear to auscultation bilaterally anteriorly. CV: Irregularly irregular rhythm. Rate controlled on telemetry. 2/6 systolic murmur. Abdomen: Normal bowel sounds. Soft. Not distended. No tenderness. No guarding. No rebound. Extremities: Trace bilateral lower extremity edema ASSESSMENT/PLAN Assessment/Plan 1. A. fib with RVR: Still appears to have an irregular rhythm on telemetry. Started on oral Cardizem per cardiology. Continue per their recommendations. 2. Abdominal pain: CT scan noted. Diverticulosis. No further evaluation at this time until other problems are improved. Symptoms are better overall. 3. Congestive heart failure likely secondary to the atrial fibrillation/RVR and the combination of systolic and diastolic dysfunction: Continue to monitor and per cardiology. 4. Anemia, iron deficient: Possibly due to dilutional effect of fluids. We'll consult GI since he has been having some abdominal pain as well. 5. Prerenal azotemia secondary to volume depletion and poor by mouth intake: We' ll see how well he can keep himself hydrated off the ProcalAmine. 6. Elevated troponins secondary to demand ischemia from A. fib: Continue per cardiology. 7. Dysphagia symptoms with difficulty swallowing and cough: Speech eval noted. Possibly due to weakness from being ill over the last couple weeks. Hopefully this will improve as his strength improves with better nutrition. Dysphagia 1 diet for now. 8. Abnormal glucose: Continue to monitor as needed. 9. Hypertension: Stable. Adjust medications as noted. 10. Valvular disease including moderate , mod MR, mod TR: Stable, continue per cardiology. Limits his surgical options due to risk from surgery. 11. History of depression: Stable. 12. Hypokalemia: Improved post replacement 13. Right common iliac aneurysm increased to 6 x 4 cm size with possible retrograde filling: Discussed with patient and his Danielle KAUR. Not sure about whether to proceed with surgery. The patient is leaning toward doing something to get it fixed. Discussed that it might be worthwhile to consult palliative care unless vascular surgery can come up with a less invasive procedure. 14. Confusion probably secondary to dementia: Scan head with CT since he did have a intracranial bleed several months ago and make sure that there is not any recurrent evidence of bleeding. 14. Disposition: Continue evaluation by physical therapy as well as GI and vascular surgery. Once decision has been made regarding vascular surgery options and GI evaluation then we will determine further placement. After discussion he would benefit from possibly doing correction rehabilitation for a week or so to try and get his strength improved so he is more ambulatory at home but if his outlook is poor then consider hospice. Problems: LIVAN LAM MD Apr 07, 2016 16:09
--- NOTE | 2016-04-07 16:29 | RAD ---
CT of the head without contrast, 04/07/2016: History: Confusion, history of bleed Comparison is made to a study from 06/05/2015. There is moderate cerebral atrophy. The ventricles are within normal limits in size. There is no shift of the midline structures. There is no evidence of acute intracranial hemorrhage or mass effect. There are mild patchy deep white matter lucencies compatible with chronic ischemic change. There is also mild cerebellar atrophy. There is calcific plaquing of the distal internal carotid and vertebral arteries. The small subacute to chronic appearing subdural hematoma seen in the high right parietal region on the previous study has resolved. IMPRESSION: 1. Chronic findings as described above. 2. No acute intracranial abnormality is detected. PQRS Compliance Statement: One or more of the following individualized dose reduction techniques were utilized for this examination: 1. Automated exposure control 2. Adjustment of the mA and/or kV according to patient size 3. Use of iterative reconstruction technique
--- NOTE | 2016-04-07 16:36 | PDOC2 ---
PALLIATIVE CARE Palliative Care Note Palliative Care Consult requested by Dr. Gonzalez. Patient currently in CT. Spoke with Danielle --diego/VINCENT. Family can meet at 11am tomorrow. JEREMY REMY Apr 07, 2016 16:36
[2016-04-07 19:30] VITALS: BP 119/63
[2016-04-07] MEDS: ATORVASTATIN CALCIUM 40 MG TABLET. PO SCH (21:25)
[2016-04-07 23:20] VITALS: BP 124/66
[2016-04-08] VITALS (10 sets, daily range): BP systolic 89–162; BP diastolic 58–74
[2016-04-08] MEDS: LEVOTHYROXINE 50 MCG TABLET PO SCH (07:00)
[2016-04-08] MEDS: PANTOPRAZOLE 40 MG TABLET. PO SCH (07:30)
--- NOTE | 2016-04-08 07:36 | PDOC ---
Provider Note Provider Note Vascular F/U F/U Robin. Iliac art. aneurysms post op remote repair of AAA and iliac aneurysms Discussed with Dr. Austin who feel s he can induce thrombosis of the larger rt. IAA by covering the rt. internal iliac so no flow with cause this to thrombose Will order this intervention. Discussed with Pt. Will call daughter NOREEN PEREZ MD Apr 08, 2016 07:36
--- NOTE | 2016-04-08 08:23 | PDOC ---
SUBJECTIVE Subjective Patient and family have received information from vascular surgery that they can do something less invasive to try and treat the bilateral iliac aneurysms. Patient is willing to proceed with that. No new other complaints. OBJECTIVE Vital Signs Vital Signs Date Time Temp Pulse Resp B/P Pulse Ox O2 Delivery O2 Flow Rate FiO2 04/08/16 07:00 97.8 91 18 121/72 97 Room Air 97.8 04/08/16 03:43 97.9 80 16 125/74 95 Room Air 97.9 04/07/16 23:20 98.2 84 18 124/66 96 Room Air 98.2 04/07/16 21:25 Room Air 04/07/16 19:30 97.8 80 22 119/63 97 Room Air 97.8 04/07/16 14:54 97.6 69 18 109/58 95 Room Air 97.6 04/07/16 10:46 97.7 79 18 149/75 97 Room Air 97.7 04/07/16 09:17 77 126/60 04/07/16 08:25 Room Air I & O Intake and Output 04/08/16 07:00 Intake Total 120 ml Output Total 1750 ml Balance -1630 ml Intake Oral 120 ml Output Urine Total 1750 ml # Voids 1 # Bowel Movements 1 PHYSICAL EXAM Physical Exam General: No acute distress. Laying in bed without supplemental oxygen Mental status: Alert and oriented. Chest: Okay air movement. Clear anteriorly. CV: Irregularly irregular rhythm. Rate controlled on telemetry. 2/6 systolic murmur. Abdomen: Normal bowel sounds. Soft. Not distended. No tenderness. No guarding. No rebound. Extremities: Trace bilateral lower extremity edema ASSESSMENT/PLAN Assessment/Plan 1. A. fib with RVR: Still appears to have an irregular rhythm on telemetry. Transitioned to long-acting Cardizem Continue per their recommendations. 2. Abdominal pain: CT scan noted. Diverticulosis. Improved. Outpatient workup if needed. 3. Congestive heart failure likely secondary to the atrial fibrillation/RVR and the combination of systolic and diastolic dysfunction: Continue to monitor and per cardiology. 4. Anemia, iron deficient: Stable. Monitor for worsening periodically. 5. Prerenal azotemia secondary to volume depletion and poor by mouth intake: Off ProcalAmine for now. We'll see how he is able to do with eating. We may need to restart postoperatively. 6. Elevated troponins at admission secondary to demand ischemia from A. fib: Continue per cardiology. 7. Dysphagia symptoms with difficulty swallowing and cough: Speech eval noted. Possibly due to weakness from being ill over the last couple weeks. Hopefully this will improve as his strength improves with better nutrition. Dysphagia 1 diet for now. 8. Abnormal glucose: Continue to monitor as needed. 9. Hypertension: Stable. Adjust medications as noted. 10. Valvular disease including moderate , mod MR, mod TR: Stable, continue per cardiology. Places him at increased risk for any significant surgical procedure. 11. History of depression: Stable. 12. Hypokalemia: Improved post replacement 13. Right > left common iliac aneurysm increased to 6 x 4 cm size on Rt with possible retrograde filling: Plan is for attempted treatment with intravascular option. Planned for this morning. 14. Confusion: Fluctuating and intermittent. Head CT shows resolved prior bleed. No new acute abnormality except for atrophy. This likely represents dementia and possibly some sundowning/hospital-acquired confusion 14. Disposition: We'll see how he does after surgery. He'll still likely need nursing home at the time of discharge as his will not be able to help him at home even though he does have good family support with his granddaughter. Problems: LIVAN LAM MD Apr 08, 2016 08:22
[2016-04-08] MEDS: PAROXETINE 20 MG TABLET. PO SCH (09:00)
[2016-04-08] MEDS: DILTIAZEM HCL 180 MG CAP.ER.24H PO SCH (09:12)
[2016-04-08] MEDS: ASPIRIN ENTERIC COATED 81 MG TABLET.DR. PO SCH (09:12)
--- NOTE | 2016-04-08 13:33 | PDOC ---
Subjective: Subjective: Awaiting IR procedure, has been NPO, no GI complaints. Objective: Vital Signs: Vital Signs Date Time Temp Pulse Resp B/P Pulse Ox O2 Delivery O2 Flow Rate FiO2 04/08/16 10:51 104 20 130/59 97 Room Air 04/08/16 07:00 97.8 97.8 PE: GEN: NAD LUNGS: CTAB anteriorly HEART: RRR ABD: S/ND/NT NEURO/PSYCH: A & O 3 A/P: Anemia -have recommend outpatient EGD/colon Decreased appetite, weight loss, dysphagia -on PPI, dysphagia diet (NPO today) Alternating bowel habits Common iliac artery aneurysm -IR procedure later today -- Will follow after procedure. Note palliative care meeting planned. Stable GI-zapata. ARMANDO STANFORD Apr 08, 2016 13:33
[2016-04-08] MEDS ORDERED: IOHEXOL 300 MG/ML 100ML VIAL. ONE (14:04)
[2016-04-08] MEDS ORDERED: LIDOCAINE 1% / SOD BICARB 8.4% 20 ML VIAL. IJ ONE ×2 (14:04→14:45)
[2016-04-08] MEDS ORDERED: HEPARIN for ARTERIAL LINE 1,500 ML ONE (14:04)
[2016-04-08] MEDS ORDERED: THROMBIN 5000 UNIT TP ONE (14:30)
[2016-04-08] MEDS ORDERED: MIDAZOLAM HCL/PF 5 MG/5 ML VIAL IV ONE (14:45)
[2016-04-08] MEDS ORDERED: FENTANYL PF 250 MCG/5 ML VIAL. IV ONE (14:45)
[2016-04-08] MEDS ORDERED: IOHEXOL 300 MG/ML 100ML VIAL. IART ONE (14:45)
[2016-04-08] MEDS ORDERED: IODIXANOL 320 MG/ML 100 ML VIAL. ONE (15:26)
[2016-04-08] MEDS ORDERED: IODIXANOL 320 MG/ML 100 ML VIAL. IART ONE (15:45)
[2016-04-08] MEDS ORDERED: CONTRAST GIVEN MC PRN (15:45)
--- NOTE | 2016-04-08 16:52 | PDOC2 ---
PALLIATIVE CARE Palliative Care Note Palliative Care Patient awakens easily but falls asleep before finishing statement. Indicated that he wanted family input when discussing code status. Met with granddaughter/DPHUGO Santos and her ; Maricruz, Son Florentino; daughter Denise, nephew Gilbert; Azalea dtr n law. Reviewed medical condition.generalized weakness; at fib; CHF; anemia, dysphagia- on dysphagia I diet; need for remote repair of AAA and iliac aneurysm. Danielle received call from Dr. Callahan this am. Will call and review any questions about risk and benefits of proposed procedure today. Discussed Code Status: requested DNR/DNI and family agreed with her request. Family understands patient will be Full Code during procedure Family discussed the importance of quality of life to patient. He would not be satisfied with [facility]. Patient is willing to work with PT/OT. Family has discussed with Dr. Gonzalez plan for SNU to see of he could get stronger. Plan: Continue current treatment plan DNR/DNI after interventional procedure. SNU for strengthening. JEREMY REMY Apr 08, 2016 16:52
--- NOTE | 2016-04-08 18:25 | PDOC ---
MODERATE SEDATION ASSESSMENT RISKS/ALTERNATIVES Risks/Alternatives Risks and alternatives of this type of sedation and procedure discussed with: RISK/ALTERNATIVES: Patient H & P ON CHART H & P H & P on chart and reviewed for co-morbid conditions and appropriate labs. H&P ON CHART: Yes STATUS PREG STATUS ASSESSED: N/A MEDS/ALLERGIES REVIEWED Meds/Allergies Reviewed Medications and Allergies including time and route of recently administered narcotics and sedatives. MEDS/ALLERGIES REVIEWED: Yes ASA RATING ASA RATING: III AIRWAY ASSESSMENT Airway Assessment Airway patency, oral function limitations, presence of caps, crowns, dentures, partials, and ability to extend neck assessed. AIRWAY ASSESSMENT: Yes MALLAMPATI SCORE MALLAMPATI SCORE: III PRE-SEDATION ASSESSMENT PRE-SEDATION ASSESSMENT: Yes JANIS JACOBS MD Apr 08, 2016 18:25
--- NOTE | 2016-04-08 18:35 | PDOC ---
Exam Wireless Telegrapher Wireless Telegrapher Norman Software Support Representative Software Support Representative Mat Ulrich Pre-Procedure Diagnosis Pre-Procedure Diagnosis Large right IIA aneurysm, at risk for rupture. Post-Procedure Diagnosis Post-Procedure Diagnosis Same Procedure Performed Procedure Performed Selective/superselective right pelvic angio Viabahn stent placement across IIA aneurysm neck Thrombin injection, via microcatheter, within right IIA aneurysm Type of Anesthesia Type of Anesthesia Local + Mod sedation Estimated Blood Loss EBL: 100 cc Condition of Patient Condition of Patient Stable. No apparent complication. AngioSeal at rt groin arterial puncture site. Disposition Disposition From IR return to 254 for recovery. Successful stent graft exclusion of right IIA aneurysm. Successful thrombin injection into right IIA aneurysm sac. Hopefully, this will prove to be definitive tx---However, no branches feeding aneurysm were identified and embolized---Therefore the possibility of future sac enlargement cannot be entirely excluded. F/u with Vascular surgery. Short term CT f/u is recommended. Full report to follow. JANIS JACOBS MD Apr 08, 2016 18:35
[2016-04-08] MEDS: ATORVASTATIN CALCIUM 40 MG TABLET. PO SCH (21:33)
[2016-04-09 03:15] VITALS: BP 129/58
--- NOTE | 2016-04-09 06:27 | PDOC ---
Provider Note Provider Note Vascular F/U S/P thrombosis of rt. common iliac art. aneurysm Will watch smaller lt CIAA rt groin OK 2+ rt popliteal pulse Stable for discharge Plan: F/U in office 1 mo. for velma. iliac ultrasounds NOREEN PEREZ MD Apr 09, 2016 06:27
[2016-04-09 07:00] VITALS: BP 132/63
[2016-04-09] MEDS: LEVOTHYROXINE 50 MCG TABLET PO SCH (07:02)
--- NOTE | 2016-04-09 08:06 | RAD ---
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 Right pelvic pain. Attempted endovascular treatment has been requested by vascular surgery. Interventions performed: 1). Exclusion of aneurysm with Viabahn covered stent. 2). Thrombin injection directly into aneurysm via microcatheter Fluoroscopy time: 42.3 minutes Kerma-area Product: 15489.1 [id number] Contrast material: 70 cc Omnipaque 300. 68 cc Visipaque 320. Anesthesia: 160 minutes moderate sedation was provided utilizing a total of 2 mg Versed and 100 mcg fentanyl, IV. The patient was appropriately monitored by a qualified independent observer throughout the time of moderate sedation. Due to significant cardiac comorbidities, the use of moderate sedation was discussed preprocedure with the patient's carousel attendant (Dr. Varner) and was approved. Consent: The procedure was explained in its entirety to the patient and/or the patient's designated public utilities sales representative by a member of the treatment team. This included a discussion of risks and benefits and commonly accepted alternatives to the procedure, as well as expected consequences of no treatment at all. Discussion of risks included, but was not limited to, those that are most frequent and those that are rare, but possibly severe or life-threatening, as well as the possibility of unforeseen complications. Sterility: All elements of maximal sterile barrier technique were utilized, including cap, mask, sterile gown, sterile gloves, large sterile sheet, appropriate hand hygiene, and 2% chlorhexidine for cutaneous antisepsis. Procedure: Informed consent was obtained from the patient's [id number], who has next of kin. He was placed supine on the biplane angiography table. Preliminary ultrasound examination of right groin revealed wide patency of right common femoral artery and adjacent aortofemoral bypass graft. Patency of [place] right common femoral artery was documented with a single hard copy ultrasound image. Right groin was then prepped and draped in the usual sterile fashion, utilizing all elements of maximal sterile barrier technique, as described above. Moderate sedation was provided with IV Versed and fentanyl. Using aseptic technique, local anesthesia, direct ultrasound guidance, and the micropuncture system, a 7 [place] right common femoral artery sheath was successfully introduced. Selective/superselective right pelvic arteriogram: 1. A 4 [place] angled glide catheter was advanced through the 7 [place] right groin sheath and was successfully directed into the large left hypogastric artery aneurysm over a Glidewire. Omnipaque 300 was hand injected and digital angiographic images were obtained. Those images revealed large, lobulated, patent aneurysm lumen. There was absent contrast opacification of hypogastric artery branches from the aneurysm sac. 2. Multiple attempts with multiple catheters were then made to traverse from right external iliac artery across the aneurysm neck into left hypogastric artery. Eventually, a Glidewire was successfully directed through a 5 [place] Omni Flush catheter into left hypogastric artery, traversing posterior division, and extending deeply into right superior gluteal artery branch. The Omni Flush catheter was then exchanged for a quick cross catheter, which successfully followed the Glidewire into superior gluteal artery. Satisfactory intraluminal position within right superior gluteal artery was confirmed with contrast injection. The quick cross catheter was then removed over a [employer] advantage guidewire. 3. A 6 [place] [facility] guiding catheter was then advanced through the 7 [place] sheath over the advantage guidewire, which was left in place with its tip within right superior gluteal artery. Contrast injection was performed through this guiding catheter within proximal right external iliac artery, within proximal hypogastric artery, and within posterior division of right hypogastric artery. DSA images were obtained which confirmed location of aneurysm neck within proximal hypogastric artery, as well as wide patency of right hypogastric artery and distal branches. Right hypogastric artery aneurysm exclusion/thrombin injection: Following identification/localization of aneurysm neck and following documentation of patent right hypogastric artery and major branches distal to the aneurysm neck, the decision was made to proceed with endovascular treatment. The 6 [place] guiding catheter was removed through the right groin 7 [place] sheath over the advantage guidewire, which was left in place within superior gluteal artery. A 2.4 [place] microcatheter was then inserted through the 7 [place] sheath, alongside the advantage wire, and was easily advanced into the large aneurysm sac over a grand slam microguidewire. The microcatheter was then removed over the grand slam wire, which was left coiled within the aneurysm sac. The 7 [place] right groin sheath was then removed over the advantage and grand slam guidewire. Manual pressure was applied at the right groin puncture site, during re-advancement of the 2.4 [place] microcatheter into the aneurysm sac over the grand slam wire. A 9 [place] right groin sheath was then advanced over the advantage wire, a long side of the microcatheter, and was positioned with its tip within mid right external iliac artery. A 7 [place] Yong sheath was then advanced through the 9 [place] right groin sheath over the advantage wire into left hypogastric artery, distal to the aneurysm neck. A 4 [place] angled glide catheter was then inserted through the Yong sheath over the advantage wire into right superior gluteal artery. The angle glide catheter was then removed over a grand slam microguidewire, position with this tip deeply within right superior gluteal artery. Subsequently, utilizing fluoroscopic guidance and road mapping technique, an 8 mm x 75 mm Viabahn endograft was advanced through the 7 [place] Yong sheath over the grand slam wire and was carefully deployed, extending from proximal right external iliac artery across the aneurysm neck into right hypogastric artery, taking care not to encroach upon major hypogastric artery branches. Contrast injection was then performed through the Yong sheath, and DSA images were obtained, which revealed wide patency of the endograft, with successful exclusion of the hypogastric artery aneurysm. No post dilatation of the endograft was considered necessary. Contrast material was then injected through the microcatheter, confirming satisfactory position within the aneurysm sac. A total of 5000 units thrombin was then very slowly injected through the microcatheter into the large aneurysm in 1000 unit aliquots. Gentle controlled contrast injections were performed following each small volume thrombin injection. Completion images revealed stasis of injected contrast material within the aneurysm sac, without reflux through the aneurysm neck, and without contrast opacification of any demonstrable feeding hypogastric artery branches. Patient tolerated the procedures well without apparent complication. The microcatheter was removed along side the endograft and 9 [place] right groin sheath. The 7 [place] Yong sheath was removed through the 9 [place] right groin sheath. The 9 [place] sheath was then removed and hemostasis was achieved utilizing Angio-Seal system and manual pressure. Impression: 1. Successful, uneventful selective/superselective right pelvic arteriogram, including external iliac artery, hypogastric artery, posterior division, and superior gluteal artery injections, as described. 2. Uneventful endovascular treatment of very large right hypogastric artery aneurysm, with exclusion of aneurysm neck utilizing external iliac artery to hypogastric artery Viabahn endograft, and with thrombin injection via microcatheter directly into the aneurysm sac.
--- NOTE | 2016-04-09 10:01 | PDOC ---
Subjective: Subjective: No GI complaints, says no BM. Objective: Objective: Per RN - probably DC today. BM charted 04/08. Vital Signs: Vital Signs Date Time Temp Pulse Resp B/P Pulse Ox O2 Delivery O2 Flow Rate FiO2 04/09/16 07:00 98.1 81 20 132/63 96 Room Air 98.1 PE: GEN: NAD LUNGS: clear anteriorly HEART: S1S2 ABD: NABS, S/ND/NT NEURO/PSYCH: A & O 3 A/P: Anemia -have recommend outpatient EGD/colon Decreased appetite, dysphagia, alternating bowel habits - stable S/p stent graft exclusion of right IIA aneurysm, thrombin injection into right IIA aneurysm sac. -- Possible DC today - okay per GI. Outpatient follow-up w/ Dr. Fairchlid. Can continue PPI, use Miralax PRN. ARMANDO STANFORD Apr 09, 2016 10:01
[2016-04-09] MEDS: PAROXETINE 20 MG TABLET. PO SCH (10:03)
[2016-04-09] MEDS: PANTOPRAZOLE 40 MG TABLET. PO SCH (10:03)
[2016-04-09] MEDS: ASPIRIN ENTERIC COATED 81 MG TABLET.DR. PO SCH (10:03)
[2016-04-09] MEDS: DILTIAZEM HCL 180 MG CAP.ER.24H PO SCH (10:03)
[2016-04-09 11:33] VITALS: BP 112/60
--- NOTE | 2016-04-09 15:24 | DISCH ---
DISCHARGE DISCHARGE DATE: Apr 09, 2016 FINAL DIAGNOSIS Problems Medical Problems: (1) Atrial fibrillation with RVR Status: Acute CONDITION ON DISCHARGE: Stable SNF STAY <30 DAYS: Yes (PT/OT/ST) POST DISCHARGE ORDERS ACTIVITY ORDERS: Activity as tolerated DIET AFTER DISCHARGE: Cardiac (Dysphagia I) CHECKS AFTER DISCHARGE CHECKS AFTER DISCHARGE: Check blood press - daily FOLLOW-UP PHYSICIAN FOLLOW-UP: Dr Lam after discharge LIVAN LAM MD Apr 09, 2016 15:24
[2016-04-09] MEDS ORDERED: DILT180C90 PO (15:26)
[2016-04-09] MEDS ORDERED: PANT40TA5 PO (15:26)
--- NOTE | 2016-04-09 15:28 | PDOC ---
Provider Note Provider Note See discharge summary dictation #[id number] LIVAN LAM MD Apr 09, 2016 15:28
--- NOTE | 2016-04-09 20:42 | DS ---
DATE OF DISCHARGE: 04/09/2016 ATTENDING PHYSICIAN: Dr. Livan Lam CHIEF COMPLAINT: Altered mental status. HISTORY OF PRESENT ILLNESS: The patient is an 86-year-old male who was having confusion on the day of admission with a temperature of 100.4. He had been sick over a couple of weeks prior with not much eating and drinking. He felt generally fatigued and weak. He presented to the Emergency Room for further evaluation where it was noted that he was in atrial fibrillation with rapid ventricular response. HOSPITAL COURSE: The patient was admitted. He was seen in consultation with Cardiology. He was placed on a Cardizem drip and had good control of his heart rate. He was eventually transitioned to oral diltiazem with continued good control of his rate, although he did remain in atrial fibrillation. He has had recent cardiac evaluation, so no additional evaluation was thought necessary at this time. The patient had also been complaining of abdominal discomfort and fullness in the lower abdomen. He had a CT scan done, which showed a significant right iliac aneurysm up to approximately 6 cm in size as well as a smaller aneurysm on the left side. Vascular surgery was consulted. He was not a good surgical candidate due to his underlying new atrial fibrillation, which is probably paroxysmal as well as his aortic stenosis. Eventually, decision was made to try and do an endovascular treatment. He did undergo successful endovascular treatment of the right aneurysm, which he tolerated well. He did have thrombin injection in the residual aneurysm and had good patent flow through the endograft. He did have some prerenal azotemia secondary to volume depletion and poor oral intake. He was also anemia. GI was consulted due to his underlying abdominal symptoms and anemia. It was felt that he is not a good candidate for doing an endoscopy at this point in time and arrangements were made for him to do follow up for outpatient endoscopy. He also has some dysphagia symptoms. He was seen by speech therapy and he was changed to dysphagia 1 diet, which probably is a result of his debilitated state over the last couple of weeks with illness. He did have some congestive heart failure which is likely secondary to his atrial fibrillation with rapid ventricular response and a combination of diastolic and systolic dysfunction. At the time of discharge, he was tolerating his diet. He was not having any significant pain. He denied any shortness of breath. PHYSICAL EXAMINATION: VITAL SIGNS: He was afebrile. His vital signs were stable. GENERAL: He was alert and in no distress. CHEST: Clear to auscultation bilaterally anteriorly. HEART: Had a normal rate with mildly irregular rhythm. ABDOMEN: Soft and nontender. EXTREMITIES: The right groin site did not have any significant bruising or ecchymosis. There is no mass. The left groin did have a palpable pulsatile mass. The extremities were without edema. Both extremities were warm and he was able to move them symmetrically. DISCHARGE DIAGNOSES: 1. AFib with RVR. 2. Congestive heart failure likely secondary to atrial fibrillation with RVR and combination of systolic and diastolic dysfunction. 3. Anemia, iron deficient. 4. Prerenal azotemia secondary to vasomotor etiology and volume depletion. 5. Elevated troponin secondary to demand ischemia from AFib without any evidence of coronary syndrome. 6. Dysphagia. 7. Abnormal glucose. 8. Hypertension. 9. Valvular disease including moderate aortic stenosis, mitral regurgitation and tricuspid regurgitation. 10. Hypokalemia. 11. Large right common iliac aneurysm and also large but smaller left common iliac aneurysm. 12. Confusion, likely secondary to hospitalization and mild underlying dementia. DISCHARGE DIET: Cardiac diet. DISCHARGE ACTIVITIES: As tolerated and per Vascular Surgery's recommendations. DISCHARGE ACTIVITY AND FOLLOWUP: The patient is to follow up with Dr. Lam after discharge from [facility]. He is to go to [facility] for physical therapy, speech therapy and occupational therapy. If he is not making any progress with therapy, we have already had the discussion with the family and he is to go probably at that point home on hospice. DISCHARGE MEDICATIONS: Diltiazem CD 180 mg p.o. daily, Protonix 40 mg p.o. daily, aspirin 650 mg p.o. q.i.d. p.r.n., aspirin 81 mg p.o. daily, Lipitor 80 mg p.o. daily, Fairborn 7.5/325 one p.o. q. 4-6 hours p.r.n., levothyroxine 50 mcg p.o. daily, multivitamin 1 p.o. daily, Paxil 20 mg p.o. daily. Lisinopril and omeprazole were discontinued. LIVAN LAM MD DR: CHARLIE/indira JOB#: [id number] / [id number] ANTON[place]
== END 2016-04-09 16:05 | DRG 270 ==
LOC: ER 11:34 → 2 SOUTH 14:30
PROVIDERS: ADMIT Family Medicine; ATTEND Family Medicine
PROC: 04VE3DZ Restriction of Right Internal Iliac Artery with Intraluminal Device, Percutaneous Approach (ICD-10-PCS; principal; 2016-04-09)
PROC: 3E053GC Introduction of Other Therapeutic Substance into Peripheral Artery, Percutaneous Approach (ICD-10-PCS; 2016-04-09)
DX: I72.3 Aneurysm of iliac artery (principal); I50.43 Acute on chronic combined systolic (congestive) and diastolic (congestive) heart failure; I24.8 Other forms of acute ischemic heart disease; I48.0 Paroxysmal atrial fibrillation; Z66 Do not resuscitate; D50.9 Iron deficiency anemia, unspecified; E03.9 Hypothyroidism, unspecified; E78.00 Pure hypercholesterolemia, unspecified; E78.5 Hyperlipidemia, unspecified; E87.6 Hypokalemia; F03.90 Unspecified dementia, unspecified severity, without behavioral disturbance, psychotic disturbance, mood disturbance, and anxiety; F41.9 Anxiety disorder, unspecified; Z51.5 Encounter for palliative care; I25.10 Atherosclerotic heart disease of native coronary artery without angina pectoris; I25.5 Ischemic cardiomyopathy; I27.2 Other secondary pulmonary hypertension; I35.0 Nonrheumatic aortic (valve) stenosis; I73.9 Peripheral vascular disease, unspecified; I71.4 Abdominal aortic aneurysm, without rupture; K59.00 Constipation, unspecified; R13.10 Dysphagia, unspecified; K21.9 Gastro-esophageal reflux disease without esophagitis; E05.90 Thyrotoxicosis, unspecified without thyrotoxic crisis or storm; F32.9 Major depressive disorder, single episode, unspecified; M19.90 Unspecified osteoarthritis, unspecified site; I11.0 Hypertensive heart disease with heart failure; M48.02 Spinal stenosis, cervical region; M54.9 Dorsalgia, unspecified; N40.1 Benign prostatic hyperplasia with lower urinary tract symptoms; Z96.651 Presence of right artificial knee joint; Z82.49 Family history of ischemic heart disease and other diseases of the circulatory system; Z86.79 Personal history of other diseases of the circulatory system; Z95.5 Presence of coronary angioplasty implant and graft; Z88.8 Allergy status to other drugs, medicaments and biological substances; Z95.1 Presence of aortocoronary bypass graft; Z98.890 Other specified postprocedural states; I25.2 Old myocardial infarction
CPT/HCPCS: 36415; 37242; 70450; 71010; 74177; 74230; 75736; 75774; 76937; 80048; 80053; 80061; 80076; 81001; 82550; 82553; 83036; 83540; 83550; 83605; 83735; 83880; 84443; 84484; 85007; 85027; 85610; 87040; 87804; 90686; 93005; 96374; C1713; C1769; C1887; C1892; C1894; G0269; J1160; J2250; J3010; J3480; J3490; J7030; Q9967; 92526; 92610; 92611; 97116; 99285-25